=== PATIENT | female | born 1960 | race Caucasian/White ===

== ENCOUNTER 2019-04-13 02:36 | Emergency (ER) | payer BC ==
[~2019-04-13] VITALS: Ht 165.1 cm; Wt 111.1 kg
[2019-04-13] MEDS ORDERED: ALBUTEROL SULF 2.5 MG/0.5ML(0.5%) NEB SOLN NEB STA (02:48)
[2019-04-13] MEDS ORDERED: IPRATROPIUM BROM 0.5 MG/2.5ML INH SOL NEB ONE ×2 (03:00→04:15)
[2019-04-13 03:05] LABS: Basophils # (auto) 0.2 uL; Basophils % (auto) 2.5 % (0.0-2.0); Eosinophils # (auto) 0.7 uL; Eosinophils % (auto) 7.8 % (0.0-7.0); Hematocrit 41.6 % (36.0-46.0); Hemoglobin 14.1 g/dL (12.2-16.2); Lymphocytes # (auto) 1.9 uL; Lymphocytes % (auto) 20.7 % (10.0-50.0); Mean Corpuscular Hemoglobin 30.4 pg (28.0-32.0); Mean Corpuscular Volume 89.6 fL (80.0-100.0); Monocytes # (auto) 0.6 uL; Monocytes % (auto) 6.4 % (0.0-12.0); Neutrophils # (auto) 5.9 uL; Neutrophils % (auto) 62.6 % (37.0-80.0); Nucleated Red Blood Cells % 0.1 %; Platelet Count (auto) 285 10^3/uL (140-450); Red Blood Cells 4.64 10^6/uL (4.0-5.20); Red Cell Distribution Width 13.6 % (11.8-14.3); White Blood Cell 9.4 10^3/uL (4.4-10.8)
[2019-04-13 03:19] LABS: Alanine Aminotransferase 24 U/L (13-56); Albumin 3.4 g/dL (3.4-5.0); Anion Gap 8 (5-15); Aspartate Aminotransferase 14 U/L (15-37); BUN/Creatinine Ratio 10.8; Blood Urea Nitrogen 8 mg/dL (7-18); Calcium 8.5 mg/dL (8.5-10.1); Carbon Dioxide 27 mmol/L (21-32); Chloride 107 mmol/L (98-107); GFR African American 104 mL/min; GFR Non-African American 86 mL/min; Glucose 99 mg/dL (74-106); Potassium 3.8 mmol/L (3.5-5.1); Sodium 142 mmol/L (136-145)
[2019-04-13 03:21] LABS: Alkaline Phosphatase 77 U/L (45-117); Bilirubin, Total 0.3 mg/dL (0.2-1.0); Total Protein 7.5 g/dL (6.4-8.2)
[2019-04-13] MEDS ORDERED: ALBUTEROL SULF 2.5 MG/0.5ML(0.5%) NEB SOLN NEB ONE (04:15)
[2019-04-13] MEDS ORDERED: methylPREDNISolone SOD SUCC 125 MG/2 ML VL IV ONE (04:15)
[2019-04-13] MEDS ORDERED: IPRATROPIUM BROM 0.5 MG/2.5ML INH SOL ONE (04:21)
[2019-04-13] MEDS ORDERED: ALBUTEROL SULF 2.5 MG/0.5ML(0.5%) NEB SOLN ONE (04:21)
[2019-04-13 06:09] VITALS: BP 119/73
== END 2019-04-13 06:50 | disposition home or self-care (01) ==
LOC: ER 02:44
DX: J45.901 Unspecified asthma with (acute) exacerbation (principal); J01.00 Acute maxillary sinusitis, unspecified; Z90.49 Acquired absence of other specified parts of digestive tract; Z98.51 Tubal ligation status
CPT/HCPCS: 36415; 71045; 80053; 85025; 93005; 94640; 94644; 96374; 99285; J2930; J7611; J7644

== ENCOUNTER 2020-09-30 10:15 | Inpatient (IN) | payer BC, OTHER ==
[~2020-09-30] VITALS: Ht 160 cm; Wt 110.6 kg
[~2020-09-30 10:15] MED LIST: ALB5IS NEB; IPR002IS NEB; LEVO500T21 PO; PRED-559 PO
[2020-09-30] MEDS ORDERED: cefTRIAXone SOD 1,000 MG VL IM ONE (11:00)
[2020-09-30] MEDS ORDERED: methylPREDNISolone SOD SUCC 125 MG/2 ML VL IM ONE (11:00)
[2020-09-30] MEDS ORDERED: LIDOCAINE 1% HCL (LOCAL ANESTH.) INJ 20ML MDV ONE (11:06)
[2020-09-30] MEDS ORDERED: ACETAMINOPHEN 500 MG TAB PO ONE ×2 (12:00→13:01)
[2020-09-30] MEDS ORDERED: AZITHROMYCIN 500MG/ 250ML 250 ML IV ONE ×2 (12:15→14:20)
[2020-09-30] MEDS ORDERED: SODIUM CHLORIDE 0.9% 1,000 ML IV ONE (12:30)
[2020-09-30 13:22] LABS: Basophils # (auto) 0 10 ^3/uL (0-0.2); Basophils % (auto) 0.2 % (0.0-2.0); Eosinophils # (auto) 0 10 ^3/uL (0-0.8); Hematocrit 42.2 % (36.0-46.0); Hemoglobin 14.4 g/dL (12.2-16.2); Lymphocytes # (auto) 0.7 10 ^3/uL (0.4-5.4); Lymphocytes % (auto) 7.9 % (10.0-50.0); Mean Corpuscular Hemoglobin 30.2 pg (28.0-32.0); Mean Corpuscular Hgb Conc. 34.3 g/dL (32.0-36.0); Mean Corpuscular Volume 88.2 fL (80.0-100.0); Monocytes # (auto) 0.4 10 ^3/uL (0-1.3); Monocytes % (auto) 4.1 % (0.0-12.0); Neutrophils # (auto) 7.6 10 ^3/uL (1.6-8.6); Neutrophils % (auto) 87.8 % (37.0-80.0); Platelet Count (auto) 260 10^3/uL (140-450); Red Blood Cells 4.78 10^6/uL (4.0-5.20); Red Cell Distribution Width 13.4 % (11.8-14.3); White Blood Cell 8.6 10^3/uL (4.4-10.8)
[2020-09-30 13:54] LABS: Potassium 3.7 mmol/L (3.5-5.1)
[2020-09-30 14:00] LABS: Albumin 3.1 g/dL (3.4-5.0); Bilirubin, Total 0.4 mg/dL (0.2-1.0); Calcium 8.8 mg/dL (8.5-10.1); Total Protein 7.9 g/dL (6.4-8.2)
[2020-09-30] MEDS ORDERED: REMDESIVIR PER PHARMACY 0 ML IV SCH (15:15)
[2020-09-30] MEDS ORDERED: METOCLOPRAMIDE HCL 5MG/ml INJ 2ml VIAL IV PRN (15:15)
[2020-09-30] MEDS ORDERED: DOCUSATE SOD 100 MG CAP PO PRN (15:15)
[2020-09-30] MEDS ORDERED: ALUM & MAG HYDROX-SIMETH LIQ(MAALOX) 30 ML PO PRN (15:15)
[2020-09-30] MEDS ORDERED: NITROGLYCERIN 0.4 MG SL TAB SL PRN (15:15)
[2020-09-30] MEDS ORDERED: MORPHINE SULF INJ 2 MG/ML SYRINGE 1ML IV PRN ×2 (15:15)
[2020-09-30 16:09] LABS: Magnesium 2.3 mg/dL (1.6-2.6)
[2020-09-30 16:18] LABS: CRP High Sensitivity 7.69 mg/dL (< 0.3)
[2020-09-30] MEDS ORDERED: REMDESIVIR 200 MG in NS 210ml LOADING DOSE ADULT IV ONE (17:00)
[2020-09-30] MEDS: BUDESONIDE (INHALATION) 180 MCG IH IN SCH (21:58)
[2020-09-30 23:35] VITALS: BP 127/77
[2020-10-01] MEDS: ENOXAPARIN SOD 40 MG/0.4 ML SYRINGE SC SCH ×3 (00:11→21:38)
[2020-10-01] MEDS: DOXYCYCLINE 100MG/250ML 250 ML IV SCH ×3 (00:22→21:37)
[2020-10-01 03:48] VITALS: BP 132/78
[2020-10-01] MEDS: BUDESONIDE (INHALATION) 180 MCG IH IN SCH ×2 (06:24→21:37)
[2020-10-01 06:27] LABS: Basophils # (auto) 0 10 ^3/uL (0-0.2); Basophils % (auto) 0.1 % (0.0-2.0); Eosinophils # (auto) 0 10 ^3/uL (0-0.8); Hematocrit 42.6 % (36.0-46.0); Lymphocytes # (auto) 0.6 10 ^3/uL (0.4-5.4); Lymphocytes % (auto) 5.7 % (10.0-50.0); Mean Corpuscular Hemoglobin 29.5 pg (28.0-32.0); Mean Corpuscular Hgb Conc. 32.9 g/dL (32.0-36.0); Mean Corpuscular Volume 89.5 fL (80.0-100.0); Monocytes # (auto) 0.4 10 ^3/uL (0-1.3); Monocytes % (auto) 3.3 % (0.0-12.0); Neutrophils # (auto) 10.3 10 ^3/uL (1.6-8.6); Neutrophils % (auto) 90.9 % (37.0-80.0); Nucleated Red Blood Cells % 0.1 %; Platelet Count (auto) 254 10^3/uL (140-450); Red Blood Cells 4.76 10^6/uL (4.0-5.20); Red Cell Distribution Width 13.3 % (11.8-14.3); White Blood Cell 11.3 10^3/uL (4.4-10.8)
[2020-10-01 06:43] LABS: Albumin 2.8 g/dL (3.4-5.0); Calcium 9.1 mg/dL (8.5-10.1); Potassium 3.9 mmol/L (3.5-5.1)
[2020-10-01 06:46] LABS: BUN/Creatinine Ratio 15.6; Bilirubin, Total 0.3 mg/dL (0.2-1.0); Total Protein 7.5 g/dL (6.4-8.2)
[2020-10-01 08:53] LABS: Urine Bacteria FEW /hpf (None Seen); Urine Blood Negative /uL (Negative); Urine Specific Gravity 1.006 (1.001-1.035); Urine WBC 1 /hpf (0 - 5)
[2020-10-01 09:00] VITALS: BP 104/66
[2020-10-01] MEDS: DexAMETHasone SOD PHOS 10MG/1ML VIAL INJ IV SCH (09:30)
[2020-10-01] MEDS: ZINC SULFATE 220mg CAP or TAB PO SCH (09:31)
[2020-10-01] MEDS: ASCORBIC ACID 1,000 MG TAB PO SCH (09:32)
[2020-10-01] MEDS: CHOLECALCIFEROL (VITD3) 2,000 UNIT CAP PO SCH (09:32)
[2020-10-01] MEDS: ALBUTEROL SULF HFA 90MCG INH 200DOSE IN PRN ×2 (12:32→21:37)
[2020-10-01] MEDS: REMDESIVIR 100 MG in SODIUM CHL 0.9% 250 ML IV SCH (15:00)
[2020-10-01] MEDS: ACETAMINOPHEN 325 MG TAB PO PRN ×2 (16:04→23:37)
[2020-10-01 16:29] VITALS: BP 124/66
[2020-10-01 23:05] VITALS: BP 136/68
[2020-10-02 06:00] VITALS: BP 139/69
[2020-10-02] MEDS: BUDESONIDE (INHALATION) 180 MCG IH IN SCH ×2 (10:00→21:03)
[2020-10-02] MEDS: DOXYCYCLINE 100MG/250ML 250 ML IV SCH ×2 (10:04→21:52)
[2020-10-02] MEDS: ZINC SULFATE 220mg CAP or TAB PO SCH (10:04)
[2020-10-02] MEDS: DexAMETHasone SOD PHOS 10MG/1ML VIAL INJ IV SCH (10:04)
[2020-10-02] MEDS: ASCORBIC ACID 1,000 MG TAB PO SCH (10:05)
[2020-10-02] MEDS: ENOXAPARIN SOD 40 MG/0.4 ML SYRINGE SC SCH ×2 (10:05→21:52)
[2020-10-02] MEDS: CHOLECALCIFEROL (VITD3) 2,000 UNIT CAP PO SCH (10:05)
[2020-10-02 13:00] VITALS: BP 140/75
[2020-10-02 15:30] VITALS: BP 138/74
[2020-10-02] MEDS: REMDESIVIR 100 MG in SODIUM CHL 0.9% 250 ML IV SCH (15:36)
[2020-10-02 15:45] VITALS: BP 134/72
[2020-10-02 16:58] VITALS: BP 130/76
[2020-10-02] MEDS: ALBUTEROL SULF HFA 90MCG INH 200DOSE IN PRN (21:03)
[2020-10-02 23:09] VITALS: BP 109/65
[2020-10-03 05:23] VITALS: BP 115/75
[2020-10-03 08:25] VITALS: BP 127/88
[2020-10-03 09:00] VITALS: BP 127/88
[2020-10-03] MEDS: BUDESONIDE (INHALATION) 180 MCG IH IN SCH ×3 (10:00→22:20)
[2020-10-03] MEDS: DOXYCYCLINE 100MG/250ML 250 ML IV SCH ×2 (10:05→22:20)
[2020-10-03] MEDS: DexAMETHasone SOD PHOS 10MG/1ML VIAL INJ IV SCH (10:05)
[2020-10-03] MEDS: CHOLECALCIFEROL (VITD3) 2,000 UNIT CAP PO SCH (10:06)
[2020-10-03] MEDS: ZINC SULFATE 220mg CAP or TAB PO SCH (10:06)
[2020-10-03] MEDS: ASCORBIC ACID 1,000 MG TAB PO SCH (10:06)
[2020-10-03] MEDS: ENOXAPARIN SOD 40 MG/0.4 ML SYRINGE SC SCH ×2 (10:06→22:21)
[2020-10-03] MEDS ORDERED: PRED20TA2 PO (12:46)
[2020-10-03] MEDS ORDERED: DOXY-346 PO (12:46)
[2020-10-03] MEDS ORDERED: ALB5IS NEB (12:46)
[2020-10-03] MEDS ORDERED: IPR002IS NEB (12:46)
[2020-10-03] MEDS ORDERED: FAMO20TA10 PO (12:46)
[2020-10-03 15:30] VITALS: BP 127/75
[2020-10-03] MEDS: REMDESIVIR 100 MG in SODIUM CHL 0.9% 250 ML IV SCH (15:37)
[2020-10-03 22:00] VITALS: BP 135/74
[2020-10-04] MEDS: ALBUTEROL SULF HFA 90MCG INH 200DOSE IN PRN ×2 (01:28→07:39)
[2020-10-04 07:02] LABS: Hematocrit 41.4 % (36.0-46.0); Hemoglobin 14.1 g/dL (12.2-16.2); Mean Corpuscular Hemoglobin 29.7 pg (28.0-32.0); Mean Corpuscular Hgb Conc. 33.9 g/dL (32.0-36.0); Mean Corpuscular Volume 87.6 fL (80.0-100.0); Platelet Count (auto) 343 10^3/uL (140-450); Red Blood Cells 4.73 10^6/uL (4.0-5.20); Red Cell Distribution Width 13.5 % (11.8-14.3); White Blood Cell 12.8 10^3/uL (4.4-10.8)
[2020-10-04 07:38] LABS: Albumin 2.6 g/dL (3.4-5.0); Calcium 8.9 mg/dL (8.5-10.1); Potassium 3.7 mmol/L (3.5-5.1)
[2020-10-04] MEDS: BUDESONIDE (INHALATION) 180 MCG IH IN SCH (07:39)
[2020-10-04 07:43] LABS: BUN/Creatinine Ratio 22.2; Bilirubin, Total 0.3 mg/dL (0.2-1.0); Total Protein 7.1 g/dL (6.4-8.2)
[2020-10-04 07:52] LABS: Basophils % (manual) 0 (0.0-2.0); Blast Cells 0; Eosinophils % (manual) 0 (0-7); Promyelocytes % 0; Reactive Lymphocytes 0
[2020-10-04 08:39] LABS: Band Neutrophils % (manual) 3; Lymphocytes % (manual) 16 (10.0-50.0); Metamyelocytes % 2; Monocytes % (manual) 3 (0-12); Myelocytes % 2
[2020-10-04 09:00] VITALS: BP 134/71
[2020-10-04] MEDS: ENOXAPARIN SOD 40 MG/0.4 ML SYRINGE SC SCH (09:05)
[2020-10-04] MEDS: ASCORBIC ACID 1,000 MG TAB PO SCH (09:05)
[2020-10-04] MEDS: CHOLECALCIFEROL (VITD3) 2,000 UNIT CAP PO SCH (09:05)
[2020-10-04] MEDS: ZINC SULFATE 220mg CAP or TAB PO SCH (09:05)
[2020-10-04] MEDS: DexAMETHasone SOD PHOS 10MG/1ML VIAL INJ IV SCH (09:05)
[2020-10-04] MEDS: DOXYCYCLINE 100MG/250ML 250 ML IV SCH (09:05)
[2020-10-04 11:02] VITALS: BP 115/70
[2020-10-04 13:00] VITALS: BP 146/84
[2020-10-04] MEDS: REMDESIVIR 100 MG in SODIUM CHL 0.9% 250 ML IV SCH (13:46)
== END 2020-10-04 15:36 | disposition home health service (06) | DRG 177 ==
LOC: ER 10:15 → TELE 15:07 → TELE-WESTW 23:30
PROVIDERS: ADMIT Hospitalist; ATTEND Hospitalist
DX: U07.1 COVID-19 (principal); J12.89 Other viral pneumonia; J96.01 Acute respiratory failure with hypoxia; J45.901 Unspecified asthma with (acute) exacerbation; Z68.41 Body mass index [BMI] 40.0-44.9, adult; E66.01 Morbid (severe) obesity due to excess calories; F41.9 Anxiety disorder, unspecified; Z82.49 Family history of ischemic heart disease and other diseases of the circulatory system; Z82.5 Family history of asthma and other chronic lower respiratory diseases; Z83.3 Family history of diabetes mellitus
CPT/HCPCS: 36415; 71045; 80053; 81001; 82728; 83605; 83615; 83735; 84443; 85007; 85025; 85027; 85379; 86141; 87040; 87426; 87804; 94640; 96361; 96365; 96367; 96372; G0378; J0696; J1100; J2001; J3490

== ENCOUNTER 2021-12-26 06:09 | Inpatient (IN) | payer OTHER ==
[~2021-12-26] VITALS: Ht 162.6 cm; Wt 117.8 kg
[~2021-12-26 06:09] MED LIST changes: +DOXY-346 PO; +FAMO20TA10 PO; -LEVO500T21 PO; -PRED-559 PO; +PRED20TA2 PO
[2021-12-26 07:20] LABS: Basophils # (auto) 0.1 10 ^3/uL (0-0.2); Basophils % (auto) 0.8 % (0.0-2.0); Eosinophils # (auto) 0.1 10 ^3/uL (0-0.8); Eosinophils % (auto) 1.9 % (0.0-7.0); Lymphocytes # (auto) 0.9 10 ^3/uL (0.4-5.4); Lymphocytes % (auto) 14.4 % (10.0-50.0); Mean Corpuscular Hemoglobin 29.6 pg (28.0-32.0); Mean Corpuscular Hgb Conc. 33.4 g/dL (32.0-36.0); Mean Corpuscular Volume 88.8 fL (80.0-100.0); Monocytes # (auto) 0.6 10 ^3/uL (0-1.3); Monocytes % (auto) 9.7 % (0.0-12.0); Neutrophils # (auto) 4.7 10 ^3/uL (1.6-8.6); Neutrophils % (auto) 73.2 % (37.0-80.0); Nucleated Red Blood Cells % 0.1 %; Red Blood Cells 4.73 10^6/uL (4.0-5.20); Red Cell Distribution Width 13.2 % (11.8-14.3); White Blood Cell 6.4 10^3/uL (4.4-10.8)
[2021-12-26 07:40] LABS: Albumin 3.3 g/dL (3.4-5.0); BUN/Creatinine Ratio 10.7; Potassium 3.8 mmol/L (3.5-5.1)
[2021-12-26 07:45] LABS: Bilirubin, Total 0.3 mg/dL (0.2-1.0); Total Protein 7.4 g/dL (6.4-8.2)
[2021-12-26] MEDS ORDERED: methylPREDNISolone SOD SUCC 125 MG/2 ML VL IV ONE (08:30)
[2021-12-26] MEDS ORDERED: ALBUTEROL SULF 2.5 MG/0.5ML(0.5%) NEB SOLN NEB ONE ×3 (08:30→17:30)
[2021-12-26] MEDS ORDERED: IPRATROPIUM BROM 0.5 MG/2.5ML INH SOL NEB ONE ×3 (08:30→17:30)
[2021-12-26] MEDS ORDERED: AZITHROMYCIN 500MG/ 250ML 250 ML IV ONE (08:30)
[2021-12-26] MEDS ORDERED: HYDROcodone-ACET 5/325MG TAB PO PRN (17:30)
[2021-12-26] MEDS ORDERED: hydrALAZINE HCL 20 MG/ML VL IV PRN (17:30)
[2021-12-26] MEDS ORDERED: BUDESONIDE (INHALATION) 0.5 MG/2 ML NEB NEB ONE (17:30)
[2021-12-26] MEDS ORDERED: HYDROcodone-ACET 5/325MG TAB PO ONE (17:30)
[2021-12-26] MEDS ORDERED: LACTULOSE 20Gm/30ML SOLN PO PRN (17:30)
[2021-12-26] MEDS ORDERED: ONDANSETRON HCL 4 MG/2 ML VIAL IV PRN (17:30)
[2021-12-26] MEDS ORDERED: DOCUSATE SOD 100 MG CAP PO PRN (17:30)
[2021-12-26] MEDS ORDERED: LORazepam 0.5 MG TAB PO PRN (17:30)
[2021-12-26] MEDS ORDERED: NITROGLYCERIN 0.4 MG SL TAB SL PRN (17:30)
[2021-12-26] MEDS ORDERED: PANTOPRAZOLE 40 MG/10 ML VIAL INJ IV ONE (17:30)
[2021-12-26] MEDS ORDERED: SUCRALFATE 1 GM/10 ML ORAL SUSP PO ONE (17:30)
[2021-12-26] MEDS ORDERED: ACETAMINOPHEN 325 MG TAB PO PRN (17:30)
[2021-12-26] MEDS ORDERED: MORPHINE SULFATE INJECTION 2 MG/ML SYRG IV PRN ×2 (17:30)
[2021-12-26] MEDS ORDERED: MONTELUKAST SODIUM 10 MG TAB PO ONE (17:30)
[2021-12-26] MEDS: IPRATROPIUM BROM 0.5 MG/2.5ML INH SOL NEB SCH ×2 (18:05→21:57)
[2021-12-26] MEDS: ALBUTEROL SULF 2.5 MG/0.5ML(0.5%) NEB SOLN NEB PRN ×2 (18:05→21:57)
[2021-12-26 18:49] VITALS: BP 112/56
[2021-12-26 20:10] VITALS: BP 101/58
[2021-12-26] MEDS: SUCRALFATE 1 GM/10 ML ORAL SUSP PO SCH (21:16)
[2021-12-26] MEDS: methylPREDNISolone SOD SUCC 40 MG/ML VL IV SCH (21:16)
[2021-12-26] MEDS: ATORVASTATIN 20 MG TAB PO SCH (21:17)
[2021-12-26] MEDS: BUDESONIDE (INHALATION) 0.5 MG/2 ML NEB NEB SCH (21:57)
[2021-12-27] MEDS: ALBUTEROL SULF 2.5 MG/0.5ML(0.5%) NEB SOLN NEB PRN ×6 (02:06→22:36)
[2021-12-27] MEDS: IPRATROPIUM BROM 0.5 MG/2.5ML INH SOL NEB SCH ×6 (02:06→22:36)
[2021-12-27 02:36] LABS: Magnesium 2.3 mg/dL (1.6-2.6); Phosphorus 2.5 mg/dL (2.5-4.90)
[2021-12-27 03:49] LABS: Alcohol, Urine < 3.0 mg/dL (0-10); Amphetamine Screen, Urine NEGATIVE (NEGATIVE); Barbiturate Scree,Urine NEGATIVE (NEGATIVE); Benzodiazephine Screen, Urine NEGATIVE (NEGATIVE); Cannabinoid Screen, Urine NEGATIVE (NEGATIVE); Cocaine Screen, Urine NEGATIVE (NEGATIVE); Opiate Scree,Urine POSITIVE (NEGATIVE); Phencyclidine Screen, Urine NEGATIVE (NEGATIVE)
[2021-12-27 05:00] VITALS: BP 109/55
[2021-12-27] MEDS: methylPREDNISolone SOD SUCC 40 MG/ML VL IV SCH ×3 (05:33→21:20)
[2021-12-27 05:41] LABS: Basophils # (auto) 0 10 ^3/uL (0-0.2); Basophils % (auto) 0.2 % (0.0-2.0); Eosinophils # (auto) 0 10 ^3/uL (0-0.8); Hematocrit 40.1 % (36.0-46.0); Hemoglobin 13.4 g/dL (12.2-16.2); Lymphocytes # (auto) 0.5 10 ^3/uL (0.4-5.4); Lymphocytes % (auto) 4.5 % (10.0-50.0); Mean Corpuscular Hemoglobin 29.7 pg (28.0-32.0); Mean Corpuscular Hgb Conc. 33.5 g/dL (32.0-36.0); Mean Corpuscular Volume 88.6 fL (80.0-100.0); Monocytes # (auto) 0.2 10 ^3/uL (0-1.3); Monocytes % (auto) 2.1 % (0.0-12.0); Neutrophils # (auto) 10.6 10 ^3/uL (1.6-8.6); Neutrophils % (auto) 93.2 % (37.0-80.0); Red Blood Cells 4.52 10^6/uL (4.0-5.20); Red Cell Distribution Width 13.2 % (11.8-14.3); White Blood Cell 11.3 10^3/uL (4.4-10.8)
[2021-12-27] MEDS ORDERED: FAMO20TA10 PO (05:53)
[2021-12-27 06:08] LABS: Albumin 3.1 g/dL (3.4-5.0); Calcium 8.9 mg/dL (8.5-10.1); Magnesium 2.5 mg/dL (1.6-2.6); Potassium 4.2 mmol/L (3.5-5.1)
[2021-12-27 06:12] LABS: BUN/Creatinine Ratio 17.9; Bilirubin, Total 0.2 mg/dL (0.2-1.0); CRP High Sensitivity 0.88 mg/dL (< 0.3); Phosphorus 2.8 mg/dL (2.5-4.90); Total Protein 7.2 g/dL (6.4-8.2); Uric Acid 4.4 mg/dL (2.6-6.0)
[2021-12-27 06:20] LABS: INR 1.04 (0.9-1.15); Partial Thromboplastin Time 26.9 sec (23.6-33.0)
[2021-12-27] MEDS: BUDESONIDE (INHALATION) 0.5 MG/2 ML NEB NEB SCH ×2 (06:20→19:15)
[2021-12-27] MEDS: SUCRALFATE 1 GM/10 ML ORAL SUSP PO SCH ×2 (06:20→11:52)
[2021-12-27 08:00] VITALS: BP 121/60
[2021-12-27] MEDS ORDERED: PANTOPRAZOLE 40 MG/10 ML VIAL INJ IV SCH (10:00)
[2021-12-27] MEDS: ASPirin 81 mg TAB PO SCH (10:04)
[2021-12-27] MEDS: ENOXAPARIN SOD 40 MG/0.4 ML SYRINGE SC SCH (10:05)
[2021-12-27] MEDS: CHOLECALCIFEROL (VITD3) 2,000 UNIT CAP/TAB PO SCH (10:05)
[2021-12-27] MEDS: CYANOCOBALAMIN 500 MCG TAB PO SCH (10:43)
[2021-12-27 12:00] VITALS: BP 103/59
[2021-12-27 16:00] VITALS: BP 102/60
[2021-12-27] MEDS: ATORVASTATIN 20 MG TAB PO SCH (21:20)
[2021-12-27 22:00] VITALS: BP 101/55
[2021-12-27] MEDS ORDERED: MONTELUKAST SODIUM 10 MG TAB PO SCH (22:00)
[2021-12-28] MEDS: ALBUTEROL SULF 2.5 MG/0.5ML(0.5%) NEB SOLN NEB PRN (02:18)
[2021-12-28] MEDS: IPRATROPIUM BROM 0.5 MG/2.5ML INH SOL NEB SCH ×4 (02:18→13:58)
[2021-12-28 05:00] VITALS: BP 104/62
[2021-12-28] MEDS: methylPREDNISolone SOD SUCC 40 MG/ML VL IV SCH ×2 (05:09→13:58)
[2021-12-28] MEDS: BUDESONIDE (INHALATION) 0.5 MG/2 ML NEB NEB SCH (06:50)
[2021-12-28] MEDS ORDERED: PRED20TA2 PO (07:13)
[2021-12-28] MEDS ORDERED: AZIT500T66 PO (07:13)
[2021-12-28] MEDS ORDERED: FAMO20TA10 PO (07:13)
[2021-12-28] MEDS ORDERED: IPRA0.00 IN (07:13)
[2021-12-28] MEDS ORDERED: MONT10TA23 PO (07:33)
[2021-12-28 08:00] VITALS: BP 105/70
[2021-12-28 09:46] VITALS: BP 105/70
[2021-12-28] MEDS ORDERED: PANTOPRAZOLE 40 MG TAB PO SCH (10:00)
[2021-12-28] MEDS: ASPirin 81 mg TAB PO SCH (11:43)
[2021-12-28] MEDS: CHOLECALCIFEROL (VITD3) 2,000 UNIT CAP/TAB PO SCH (11:43)
[2021-12-28] MEDS: ENOXAPARIN SOD 40 MG/0.4 ML SYRINGE SC SCH (11:43)
[2021-12-28] MEDS: CYANOCOBALAMIN 500 MCG TAB PO SCH (11:43)
[2021-12-28 12:17] VITALS: BP 113/64
== END 2021-12-28 14:51 | disposition home or self-care (01) | DRG 202 ==
LOC: ER 06:09 → OVERFLOW 17:27 → TELE-CENTR 20:07 → CENTRAL 20:08
PROVIDERS: ADMIT Hospitalist; ATTEND Hospitalist
DX: J45.42 Moderate persistent asthma with status asthmaticus (principal); E44.1 Mild protein-calorie malnutrition; E66.2 Morbid (severe) obesity with alveolar hypoventilation; Z68.41 Body mass index [BMI] 40.0-44.9, adult; R09.02 Hypoxemia; K29.70 Gastritis, unspecified, without bleeding; K21.9 Gastro-esophageal reflux disease without esophagitis; J20.9 Acute bronchitis, unspecified; E78.5 Hyperlipidemia, unspecified; Z20.822 Contact with and (suspected) exposure to COVID-19; I25.10 Atherosclerotic heart disease of native coronary artery without angina pectoris; Z90.49 Acquired absence of other specified parts of digestive tract; Z98.51 Tubal ligation status
CPT/HCPCS: 36415; 36600; 71045; 80053; 80061; 80307; 82728; 82805; 83036; 83735; 83880; 83970; 84100; 84443; 84484; 84550; 85025; 85379; 85610; 85652; 85730; 86141; 87040; 87070; 87077; 87086; 87186; 87205; 93005; 94640; 96365; 96366; 96375; C9113; G0378

== ENCOUNTER 2024-06-07 10:30 | Emergency (ER) | payer OTHER ==
[~2024-06-07] VITALS: Ht 160 cm; Wt 111.7 kg
[~2024-06-07 10:30] MED LIST changes: +AZIT500T66 PO; -DOXY-346 PO; -IPR002IS NEB; +IPRA0.00 IN; +MONT10TA23 PO
[2024-06-07 12:09] VITALS: BP 152/89; PULSE 85; RESP 16; TEMP 98.1; O2SAT 95
[2024-06-07] MEDS: KETOROLAC TROMETH 30 MG/ML 1ML VIAL IM ONE (14:00)
[2024-06-07] MEDS ORDERED: MELO7.5T7 PO (14:26)
[2024-06-07] MEDS ORDERED: CYCL-837 PO (14:26)
== END 2024-06-07 14:41 | disposition home or self-care (01) ==
LOC: ER 10:35
DX: M54.16 Radiculopathy, lumbar region (principal); J45.909 Unspecified asthma, uncomplicated; Z90.49 Acquired absence of other specified parts of digestive tract; Z90.89 Acquired absence of other organs; Z79.52 Long term (current) use of systemic steroids
CPT/HCPCS: 72170; 96372; 99283; J1885

== ENCOUNTER 2024-08-19 12:01 | Inpatient (IN) | payer OTHER ==
[~2024-08-19] VITALS: Ht 160 cm; Wt 126.0 kg
[~2024-08-19 12:01] MED LIST changes: +CYCL-837 PO; +MELO7.5T7 PO
--- NOTE | 2024-08-19 13:14 | ED.PDOC ---
SOB-HPI HPI Comments 63y F who presents to the ED for chief complaint of flu-like symptoms. Pt states she has been having flu-like symptoms with congestion and runny nose, fever and headache for the past 4 days. Pt states she took COVID at home test and tested positive yesterday. Pt states she has previously hospitalized for COVID in 2020 and is currently vaccinated against it. Pt has noted history of asthma and states she recently ran out of her inhaler. Pt denies any other symptoms at this time. Pt has noted temp of 99.6F, hear rate of 109 and BP of 147/88. Pt otherwise denies any other symptoms at this time. Chief Complaint: Flu like Time Seen by MD: 13:11 Primary Care Provider: Sreedhar Rock notes: Medications, Allergies Information Source: Patient, Spouse Mode of Arrival: Ambulatory Brought in by: spouse Past Medical History PAST MEDICAL HISTORY: Asthma Surgical History: BTL, Cholecystectomy, CONCRETE SMOOTHER History: No Pertinent CONCRETE SMOOTHER History Family History Family History: Reviewed,noncontributory to illness Social History Smoker: Non-Smoker Alcohol: Denies ETOH Use Drugs: Denies Drug Use Lives In: Home Constitutional: reports: fatigue, fever, malaise, weakness; denies: chills, diaphoresis, sweats, others EENTM: denies: blurred vision, double vision, ear bleeding, ear discharge, ear drainage, ear pain, ear ringing, eye pain, eye redness, hearing loss, mouth pain, mouth swelling, nasal discharge, nose bleeding, nose congestion, nose pain, photophobia, tearing, throat pain, throat swelling, voice changes, others Respiratory: reports: cough; denies: hemoptysis, orthopnea, SOB at rest, shortness of breath, SOB with excertion, stridor, wheezing, others Cardiovascular: denies: chest pain, dizzy spells, diaphoresis, Dyspnea on exertion, edema, irregular heart beat, left arm pain, lightheadedness, palpitations, PND, syncope, others Gastrointestinal: denies: abdomen distended, abdominal pain, blood streaked bowels, constipated, diarrhea, dysphagia, difficulty swallowing, hematemesis, melena, nausea, poor appetite, poor fluid intake, rectal bleeding, rectal pain, vomiting, others Genitourinary: denies: abnormal vagina bleeding, burning, dyspareunia, dysuria, flank pain, frequency, hematuria, incontinence, pain, , vagina discharge, urgency, others Neurological: denies: dizziness, fainting, headache, left sided numbness, left sided weakness, numbness, paresthesia, pre-existing deficit, right sided numbness, right sided weakness, seizure, speech problems, tingling, tremors, weakness, others Musculoskeletal: denies: back pain, gout, joint pain, joint swelling, muscle pain, muscle stiffness, neck pain, others Integumetry: denies: bruises, change in color, change in hair/nails, dryness, laceration, lesions, lumps, rash, wounds, others Allergic/Immunocompromised: denies: Difficulty Healing, Frequent Infections, H die[place], Itching, others Hematologic/Lymphatic: denies: anemia, blood clots, easy bleeding, easy bruising, swollen glands, others Endocrine: denies: excessive hunger, excessive sweating, excessive thirst, excessive urination, flushing, intolerance to cold, intolerance to heat, unexplained weight gain, unexplained weight loss, others Psychiatric: denies: anxiety, bipolar disorder, depression, hopeless, panic disorder, schizophrenia, sleepless, suicidal, others All Other Systems: Reviewed and Negative Physical Exam General Appearance: Moderate Distress HEENT: Normal ENT Inspection, Pharynx Normal, TMs Normal Neck: Full Range of Motion, Non-Tender, Normal, Normal Inspection Respiratory: Other (Coarse breath sounds) Cardiovascular: No Edema, No JVD, No Murmur, No Gallop, Normal Peripheral Pulses, Regular Rate/Rhythm Breast Exam: Deferred Gastrointestinal: No Organomegaly, Non Tender, No Pulsatile Mass, Normal Bowel Sounds, Soft Genitalia: Deferred Pelvic: Deferred Rectal: Deferred Extremities: No calf tenderness, Normal capillary refill, Normal inspection, Normal range of motion, Non-tender, No pedal edema Musculoskeletal : Apperance: Normal Neurologic: Alert, 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 Was a procedure done?: No Differential Dx Differential Diagnosis: Anxiety, Asthma, Bronchitis, CHF, COPD, Pneumonia, Pulmonary Embolism, Respiratory Distress, URI Comments COVID, Influeza A and B, RSV X-Ray, Labs, Meds, VS Vital Signs Date Time Temp Pulse Resp B/P (MAP) Pulse Ox O2 Delivery O2 Flow Rate FiO2 08/19/24 14:16 101 18 143/79 (100) 94 08/19/24 12:34 99.6 109 24 147/88 (107) 97 Lab Test 08/19/24 15:45 08/19/24 13:10 Range/Units Influenza Type A Antigen Negative Negative Influenza Type B Antigen Negative Negative SARS-CoV-2 Antigen (Rapid) Positive NEGATIVE White Blood Count 8.3 4.4-10.8 10^3/uL Red Blood Count 4.68 4.0-5.20 10^6/uL Hemoglobin 14.4 12.2-16.2 g/dL Hematocrit 42.7 36.0-46.0 % Mean Corpuscular Volume 91.1 80.0-100.0 fL Mean Corpuscular Hemoglobin 30.7 28.0-32.0 pg Mean Corpuscular Hemoglobin Concent 33.7 32.0-36.0 g/dL Red Cell Distribution Width 13.4 11.8-14.3 % Platelet Count 257 140-450 10^3/uL Mean Platelet Volume 6.9 6.9-10.8 fL Neutrophils (%) (Auto) 78.0 37.0-80.0 % Lymphocytes (%) (Auto) 11.5 10.0-50.0 % Monocytes (%) (Auto) 7.5 0.0-12.0 % Eosinophils (%) (Auto) 2.3 0.0-7.0 % Basophils (%) (Auto) 0.7 0.0-2.0 % Neutrophils # (Auto) 6.5 1.6-8.6 10 ^3/uL Lymphocytes # (Auto) 1.0 0.4-5.4 10 ^3/uL Monocytes # (Auto) 0.6 0-1.3 10 ^3/uL Eosinophils # (Auto) 0.2 0-0.8 10 ^3/uL Basophils # (Auto) 0.1 0-0.2 10 ^3/uL Nucleated Red Blood Cells 0.2 % Sodium Level 137 136-145 mmol/L Potassium Level 4.1 3.5-5.1 mmol/L Chloride Level 103 98-107 mmol/L Carbon Dioxide Level 29 20-31 mmol/L Anion Gap 5 5-15 Blood Urea Nitrogen 8 L 9-23 mg/dL Creatinine 0.88 0.550-1.02 mg/dL Glomerular Filtration Rate Calc 75 >90 mL/min BUN/Creatinine Ratio 9.1 L 10.0-20.0 Serum Glucose 178 H 74-106 mg/dL Calcium Level 9.5 8.7-10.4 mg/dL PROCEDURE(s): CXRP - CHEST PORTABLE Findings/Impression: Frontal chest radiograph demonstrates no acute osseous or superficial soft tissue abnormalities. The trachea is midline. The cardiac silhouette and mediastinum are within normal limits. No pneumothorax, pleural effusions, or consolidations. Patient alert pain Complaining of shortness a breath. Has tested for COVID at home. Blood sugar elevated. Vitals stable. WBC within normal limits. Hemoglobin within normal limits. Has had vaccine for COVID. Reviewed her history. Explained to the patient. Continue cardiac monitoring. Spoke with choice physician. Her saturation was low. Was placed on oxygen. Fever was increasing. Tachycardia. Clinically she has a pneumonia. Family insists on staying. They are scared to go home. Spoke with choice physician. The night provider for choice we will be following the patient. Time of 1ST Reevaluation: 13:40 Reevaluation 1ST: Unchanged Time of 2ND Reevaluation: 17:32 Reevaluation 2ND: Unchanged Patient Education/Counseling: Diagnosis, Treatment Family Education/Counseling: Diagnosis, Treatment Departure 1 Departure Time of Disposition: 15:24 Impression: Primary Impression: Pneumonia due to 2019 novel coronavirus Disposition: ADMITTED INPATIENT Admit to: Med Surg Condition: Guarded e-Prescriptions Prednisone (Prednisone) 20 Mg Tab 20 MG PO DAILY for 5 Days, #5 MG Prov: JEREMY ORONA MD 08/19/24 Critical Care Note Critical Care Time?: Yes (45 min-critical care time only) Stability Stability form required: No Heart Score Heart Score: Heart Score Response (Comments) Value History N/A 0 EKG N/A 0 Age N/A 0 Risk Factors N/A 0 Troponin N/A 0 Total 0 I personally scribed for JEREMY ORONA MD ([email or web address]) on 08/19/24 at 13:13. Electronically submitted by Angie Alvarez ([email or web address]). I personally scribed for JEREMY ORONA MD ([email or web address]) on 08/19/24 at 13:36. Electronically submitted by Angie Alvarez ([facility] JEREMY ORONA MD Aug 19, 2024 13:13
--- NOTE | 2024-08-19 13:22 | DVH ---
EXAM: XY CHEST PORTABLE TECHNIQUE: Single frontal chest radiograph CLINICAL HISTORY: sob COMPARISON: CHEST PORTABLE on DOS: 12/26/21, CHEST PORTABLE on DOS: 10/04/20, CHEST PORTABLE on DOS: 1 12/02/19 Findings/Impression: Frontal chest radiograph demonstrates no acute osseous or superficial soft tissue abnormalities. The trachea is midline. The cardiac silhouette and mediastinum are within normal limits. No pneumothorax, pleural effusions, or consolidations.
[2024-08-19 13:45] LABS: Basophils # (auto) 0.1 10 ^3/uL (0-0.2); Basophils % (auto) 0.7 % (0.0-2.0); Eosinophils # (auto) 0.2 10 ^3/uL (0-0.8); Eosinophils % (auto) 2.3 % (0.0-7.0); Hematocrit 42.7 % (36.0-46.0); Hemoglobin 14.4 g/dL (12.2-16.2); Lymphocytes % (auto) 11.5 % (10.0-50.0); Mean Corpuscular Hemoglobin 30.7 pg (28.0-32.0); Mean Corpuscular Hgb Conc. 33.7 g/dL (32.0-36.0); Mean Corpuscular Volume 91.1 fL (80.0-100.0); Monocytes # (auto) 0.6 10 ^3/uL (0-1.3); Monocytes % (auto) 7.5 % (0.0-12.0); Neutrophils # (auto) 6.5 10 ^3/uL (1.6-8.6); Nucleated Red Blood Cells % 0.2 %; Platelet Count (auto) 257 10^3/uL (140-450); Red Blood Cells 4.68 10^6/uL (4.0-5.20); Red Cell Distribution Width 13.4 % (11.8-14.3); White Blood Cell 8.3 10^3/uL (4.4-10.8)
[2024-08-19 13:46] LABS: Chloride 103 mmol/L (98-107); Potassium 4.1 mmol/L (3.5-5.1); Sodium 137 mmol/L (136-145)
[2024-08-19 13:47] LABS: Anion Gap 5 (5-15); Calcium 9.5 mg/dL (8.7-10.4); Carbon Dioxide 29 mmol/L (20-31)
[2024-08-19 13:52] LABS: BUN/Creatinine Ratio 9.1 (10.0-20.0); Blood Urea Nitrogen 8 mg/dL (9-23); Glucose 178 mg/dL (74-106)
[2024-08-19 16:53] LABS: Rapid Influenza A Negative (Negative); Rapid Influenza B Negative (Negative)
[2024-08-19 16:56] LABS: COVID19 ANTIGEN SOFIA FIA POSITIVE (NEGATIVE)
[2024-08-19] MEDS ORDERED: PRED20TA2 PO (17:35)
[2024-08-19] MEDS: methylPREDNISolone SOD SUCC 125 MG/2 ML VL IV ONE (17:45)
[2024-08-19] MEDS ORDERED: MORPHINE SULFATE INJ 2 MG/ml SYRG IV PRN (17:45)
[2024-08-19] MEDS ORDERED: ACETAMINOPHEN 325 MG TAB PO PRN (17:45)
[2024-08-19] MEDS ORDERED: NITROGLYCERIN 0.4 MG SL TAB SL PRN (17:45)
[2024-08-19 19:00] VITALS: PULSE 80; RESP 20; O2SAT 96
[2024-08-19 20:25] VITALS: PULSE 82; RESP 14; O2SAT 99
[2024-08-19 21:28] LABS: Urine Bacteria FEW /hpf (None Seen); Urine Blood TRACE /uL (Negative); Urine Clarity Clear (Clear); Urine Color Yellow (Yellow); Urine Mucus FEW (None Seen); Urine Protein, UAD Negative (Negative); Urine Specific Gravity 1.025 (1.001-1.035); Urine Urobilinogen Normal (Negative); Urine WBC 1 /hpf (0 - 5); Urine pH 5.5 (5.0-9.0)
[2024-08-19] MEDS: ASCORBIC ACID 500 MG TAB PO SCH (22:22)
[2024-08-19 22:58] VITALS: BP 102/59; PULSE 89; RESP 14; RESP 19; TEMP 98.6; O2SAT 98; O2SAT 99
[2024-08-19 22:59] VITALS: BP 121/64; PULSE 80; RESP 14; TEMP 98; O2SAT 98
[2024-08-19 23:43] VITALS: BP 102/59; PULSE 81; RESP 18; TEMP 98; O2SAT 99
[2024-08-20] VITALS (10 sets, daily range): BP systolic 104–124; BP diastolic 54–66; PULSE 66–87; RESP 16–19; TEMP 97.9–98.7; O2SAT 93–99
--- NOTE | 2024-08-20 04:26 | DVHHP2 ---
FITZ KAMARA RESTAURANT LEAD 08/20/24 0426: History of Present Illness Reason for Visit: Shortness of breath History of Present Illness 63 year-old female with path medical history of asthma presents with complaints of upper respiratory symptoms Times four days. Patient endorsed sick contact by family Positive for Covid. Patient states she recently tested Positive for COVID-19. On arrival to the emergency department patient presented hemodynamically stable with a Documented oxygen saturation of 97% on room air. Further evaluation while the patient was in the emergency department demonstrated that the patient Was requiring supplemental oxygen And placed on 6 L oxy mask. Patient was seen and evaluated by myself and ER bed one, at such time her oxygen saturation was 94% on 6 L oxy mask. Patient denies dizziness, chest pain, nausea, vomiting, diarrhea, Pulmonary: Asthma Smoke: No ALCOHOL: none Drugs: None Lives: with Family Review of Systems Constitutional: Yes: Fever, Malaise; No: Chills, Sweats, Weakness, Other Eyes: No: Pain, Vision change, Conjunctivae inflammation, Eyelid inflammation, Other, Redness Respiratory: Cough, Shortness of breath; No: Dry, SOB with excertion, Wheezing, Hemoptysis, Pleuritic Pain, Sputum, Wheezing, Other Cardiovascular: No: Chest Pain, Palpitations, Orthopnea, Paroxysmal Noc. Dyspnea, Edema, Lt Headedness, Other Gastrointestinal: No: Nausea, Vomiting, Abdominal Pain, Diarrhea, Constipation, Melena, Hematochezia, Other Genitourinary: No Dysuria, No Frequency, No Incontinence, No Hematuria, No Rete ntion, No Other Musculoskeletal: No: other, neck pain, shoulder pain, arm pain, back pain, hand pain, leg pain, foot pain Skin: No: Rash, Lesions, Jaundice, Bruising, Other Neurological: No: Weakness, Numbness, Incoordination, Change in speech, Confusion, Seizures, Other Allergies: Coded Allergies: NO KNOWN ALLERGIES (Unverified , 03/13/14) Medications Current Medications Medications Dose Ordered Sig/Gerry Route Start Time Stop Time Status Last Admin Dose Admin Acetaminophen 325 mg Q4HP PRN PO 08/19/24 17:45 Enoxaparin Sodium 40 mg DAILY SC 08/20/24 10:00 Zinc Sulfate 220 mg DAILY PO 08/20/24 10:00 Ascorbic Acid 500 mg BID PO 08/19/24 22:00 08/19/24 22:22 500 MG Nitroglycerin 0.4 mg Q5MINP PRN SL 08/19/24 17:45 Morphine Sulfate 2 mg Q30M PRN IV 08/19/24 17:45 Dexamethasone Sodium Phosphate 6 mg DAILY IV 08/20/24 10:00 Albuterol 180 mcg TID IN 08/20/24 06:00 Pantoprazole Sodium 40 mg DAILY IV 08/20/24 10:00 Exam Vital Signs Vital Signs Date Time Temp Pulse Resp B/P (MAP) Pulse Ox O2 Delivery O2 Flow Rate FiO2 08/19/24 23:43 81 18 99 Simple Mask* 9 90 08/19/24 23:43 98.0 102/59 (73) 98.0 General Appearance: Alert, Oriented X3, Cooperative, moderate distress HEENT: Atraumatic, PERRLA Respiratory: Clear to auscultation, Normal air movement Cardiovascular: Regular rate, Normal S1, Normal S2 Abdominal: Normal bowel sounds, Soft, No tenderness Extremities: No clubbing, No cyanosis, No edema Skin: No rashes, No breakdown Neuro: Normal speech, Strength at 5/5 X4 ext, Cranial nerves 3-12 NL Psych/Mental Status: Mental status NL, Mood NL Labs/Xrays Labs Test 08/19/24 21:05 08/19/24 15:45 08/19/24 13:10 Range/Units Urine Color Yellow Yellow Urine Clarity Clear Clear Urine pH 5.5 5.0-9.0 Urine Specific [place] 1.025 1.001-1.035 Urine Protein Negative Negative Urine Ketones 1+ H Negative Urine Blood Trace H Negative /uL Urine Nitrite Negative Negative Urine Bilirubin Negative Negative Urine Urobilinogen Normal Negative mg/dL Urine Leukocyte Esterase Negative Negative /uL Urine RBC 6 0 - 4 /hpf Urine WBC 1 0 - 5 /hpf Urine Squamous Epithelial Cells Few <5 /hpf Urine Bacteria Few H None Seen /hpf Urine Mucus Few None Seen Urine Glucose Normal Normal mg/dL Influenza Type A Antigen Negative Negative Influenza Type B Antigen Negative Negative SARS-CoV-2 Antigen (Rapid) Positive NEGATIVE White Blood Count 8.3 4.4-10.8 10^3/uL Red Blood Count 4.68 4.0-5.20 10^6/uL Hemoglobin 14.4 12.2-16.2 g/dL Hematocrit 42.7 36.0-46.0 % Mean Corpuscular Volume 91.1 80.0-100.0 fL Mean Corpuscular Hemoglobin 30.7 28.0-32.0 pg Mean Corpuscular Hemoglobin Concent 33.7 32.0-36.0 g/dL Red Cell Distribution Width 13.4 11.8-14.3 % Platelet Count 257 140-450 10^3/uL Mean Platelet Volume 6.9 6.9-10.8 fL Neutrophils (%) (Auto) 78.0 37.0-80.0 % Lymphocytes (%) (Auto) 11.5 10.0-50.0 % Monocytes (%) (Auto) 7.5 0.0-12.0 % Eosinophils (%) (Auto) 2.3 0.0-7.0 % Basophils (%) (Auto) 0.7 0.0-2.0 % Neutrophils # (Auto) 6.5 1.6-8.6 10 ^3/uL Lymphocytes # (Auto) 1.0 0.4-5.4 10 ^3/uL Monocytes # (Auto) 0.6 0-1.3 10 ^3/uL Eosinophils # (Auto) 0.2 0-0.8 10 ^3/uL Basophils # (Auto) 0.1 0-0.2 10 ^3/uL Nucleated Red Blood Cells 0.2 % Sodium Level 137 136-145 mmol/L Potassium Level 4.1 3.5-5.1 mmol/L Chloride Level 103 98-107 mmol/L Carbon Dioxide Level 29 20-31 mmol/L Anion Gap 5 5-15 Blood Urea Nitrogen 8 L 9-23 mg/dL Creatinine 0.88 0.550-1.02 mg/dL Glomerular Filtration Rate Calc 75 >90 mL/min BUN/Creatinine Ratio 9.1 L 10.0-20.0 Serum Glucose 178 H 74-106 mg/dL Calcium Level 9.5 8.7-10.4 mg/dL Assessment/Plan Assessment/Plan Acute hypoxemic respiratory failure Covid 19 positive Hx Asthma Plan Admit telemetry Pulmonology consult. Bronchodilators. Supplemental O2 to maintain O2 saturation greater than 93%. IV steroids. COVID-19 protocol: Droplet precautions, oral vitamin supplementation Infectious disease consult. GI Prophylaxis Protonix / DVT prophylaxis Lovenox Plan discussed with: Patient My Orders Orders - FITZ KAMARA RESTAURANT LEAD Procedure Category Date Status Time Dexamethasone PHA 08/20/24 In Process Injection (Decadron 10:00 Complete Blood Count LAB 08/21/24 Verified 05:00 Complete Blood Count LAB 08/22/24 Verified 05:00 Complete Blood Count LAB 08/23/24 Verified 05:00 Basic Metabolic Panel LAB 08/21/24 Verified 05:00 Basic Metabolic Panel LAB 08/22/24 Verified 05:00 Basic Metabolic Panel LAB 08/23/24 Verified 05:00 Basic Metabolic Panel LAB 08/24/24 Verified 05:00 *Consult CONS 08/19/24 Transmitted / 22:13 * Infectious [place]- CONS 08/19/24 Transmitted [place] 22:13 Albuterol Inhaler PHA 08/20/24 In Process (Ventolin Hfa) 06:00 Pantoprazole PHA 08/20/24 In Process (Protonix) 10:00 Date of Service: Aug 20, 2024 Billing Provider: ESTEFANÍA SOLIS MD Common Visit Codes: NOT BILLABLE ESTEFANÍA SOLIS MD 08/20/24 1634: Review of Systems Allergies: Coded Allergies: NO KNOWN ALLERGIES (Unverified , 03/13/14) Additional Comments Additional Comments Additional Comments 63-year-old female with a known history of chronic asthma initiation of the hospital with flu-like symptoms shortness breath found to have 1. Acute hypoxic respiratory failure secondary to acute viral pneumonia 2. Acute one pneumonia with positive COVID-19 3. Chronic asthma -remdesivir, dexamethasone, contact droplet isolation -continue O2 supplementation -infectious disease consultation. FITZ KAMARA NP Aug 20, 2024 04:26 ESTEFANÍA SOLIS MD Aug 20, 2024 16:34
[2024-08-20 06:50] LABS: Alanine Aminotransferase 28 U/L (7-40); Alkaline Phosphatase 87 U/L (46-116); Anion Gap 8 (5-15); BUN/Creatinine Ratio 13.2 (10.0-20.0); Blood Urea Nitrogen 10 mg/dL (9-23); Calcium 10.2 mg/dL (8.7-10.4); Carbon Dioxide 28 mmol/L (20-31); Chloride 103 mmol/L (98-107); Potassium 4.4 mmol/L (3.5-5.1); Sodium 139 mmol/L (136-145)
[2024-08-20 06:51] LABS: Albumin 4.7 g/dL (3.2-4.8); Aspartate Aminotransferase 18 U/L (13-40); Basophils # (auto) 0 10 ^3/uL (0-0.2); Bilirubin, Total 0.4 mg/dL (0.2-1.0); Eosinophils # (auto) 0 10 ^3/uL (0-0.8); Glucose 151 mg/dL (74-106); Hematocrit 45.6 % (36.0-46.0); Hemoglobin 15.3 g/dL (12.2-16.2); Lymphocytes # (auto) 0.6 10 ^3/uL (0.4-5.4); Mean Corpuscular Hemoglobin 30.3 pg (28.0-32.0); Mean Corpuscular Hgb Conc. 33.5 g/dL (32.0-36.0); Mean Corpuscular Volume 90.5 fL (80.0-100.0); Monocytes # (auto) 0.1 10 ^3/uL (0-1.3); Monocytes % (auto) 1.3 % (0.0-12.0); Neutrophils # (auto) 8.2 10 ^3/uL (1.6-8.6); Neutrophils % (auto) 91.7 % (37.0-80.0); Platelet Count (auto) 310 10^3/uL (140-450); Red Blood Cells 5.04 10^6/uL (4.0-5.20); Red Cell Distribution Width 13.1 % (11.8-14.3); Total Protein 7.6 g/dL (5.7-8.2)
[2024-08-20] MEDS ORDERED: REMDESIVIR PER PHARMACY 0 ML IV SCH (09:45)
--- NOTE | 2024-08-20 09:49 | DVHINCON2 ---
Date of service: Aug 20, 2024 Referring Physician MICHELINE Hensley Reason for Consultation Acute hypoxic respiratory failure, COVID 19 infection History of Present Illness 63-year-old woman history of asthma presented with upper respiratory symptoms. She recently had a COVID positive contact with a family member. She also states that she recently tested positive for COVID. On the ED arrival she presented with a pulse oximetry reading of 97% on room air. She had later required placement on 6 liters/minute via OxyMask. Pulmonary consultation is called due to acute hypoxic respiratory failure secondary to COVID-19 infection. Review of systems: 14 point review of systems is negative unless otherwise noted above. Past medical history: Asthma, morbid obesity Past surgical history: , cholecystectomy, bilateral tubal ligation Medications: Reviewed Allergies: No known drug allergies. Family history: No family history of premature CAD. No family history of lung disease Social history: Nonsmoker. No alcohol or illicit drug use. Lives at home. Family History: Asthma G8 FATHER Congestive heart failure G8 FATHER Diabetes mellitus G8 MOTHER Hypertension G8 FATHER Allergies: Coded Allergies: NO KNOWN ALLERGIES (Unverified , 03/13/14) Home Meds Active Scripts Prednisone (Prednisone) 20 Mg Tab, 20 MG PO DAILY for 5 Days, #5 MG Prov:JEREMY ORONA MD 08/19/24 Cyclobenzaprine Hcl (Cyclobenzaprine Hcl) 5 Mg Tab, 1 TAB PO QHSP PRN for 30 Days, #30 TAB 0 Refills Prov:MARICRUZ RAMIREZ NP 06/07/24 Meloxicam (Meloxicam) 7.5 Mg Tab, 1 TAB PO DAILY for 30 Days, #30 TAB 0 Refills Prov:MARICRUZ RAMIREZ NP 06/07/24 Montelukast Sodium (Singulair) 10 Mg Tab, 10 MG PO DAILY, #30 TAB Prov:KENYATTA PALACIOS MD 12/28/21 Azithromycin (Azithromycin) 500 Mg Tab, 1 TAB PO DAILY, #5 TAB Prov:KENYATTA PALACIOS MD 12/28/21 Famotidine (PEPCID TABLET) 20 Mg Tb, 1 TAB PO BID, #30 TAB Prov:KENYATTA PALACIOS MD 12/28/21 Prednisone (Prednisone) 20 Mg Tab, 20 MG PO BID, #14 MG Prov:KENYATTA PALACIOS MD 12/28/21 Ipratropium-Albuterol (Ipratropium [place]/Albut) 1 Jessica Jessica, 1 JESSICA IN TIDBM, #60 ML Prov:KENYATTA PALACIOS MD 12/28/21 Albuterol Sulfate (Ventolin) 2.5 Mg/0.5 Ml Nb, 2.5 MG NEB Q6HR PRN for 30 Days, #20 INH Prov:KENYATTA PALACIOS MD 10/03/20 Reported Medications Famotidine (PEPCID TABLET) 20 Mg Tb, 1 TAB PO BIDP, #60 TAB 3 Refills 12/27/21 Current Medications Current Medications Medications (Trade) Dose Ordered Sig/Gerry Route PRN Reason Start Time Stop Time Status Last Admin Acetaminophen (Tylenol Tablet) 325 mg Q4HP PRN PO MILD PAIN (1-3 PAIN SCALE) 08/19/24 17:45 Enoxaparin Sodium (Lovenox) 40 mg DAILY SC 08/20/24 10:00 Zinc Sulfate 220 mg DAILY PO 08/20/24 10:00 Ascorbic Acid (Vitamin C Tablet) 500 mg BID PO 08/19/24 22:00 08/19/24 22:22 Nitroglycerin (Ntrostat Sublingual) 0.4 mg Q5MINP PRN SL FOR CHEST PAIN 08/19/24 17:45 Morphine Sulfate 2 mg Q30M PRN IV FOR CHEST PAIN 08/19/24 17:45 Dexamethasone Sodium Phosphate (Decadron Injection) 6 mg DAILY IV 08/20/24 10:00 Albuterol (Ventolin Hfa) 180 mcg TID IN 08/20/24 06:00 Pantoprazole Sodium (Protonix) 40 mg DAILY IV 08/20/24 10:00 Vital Signs Vital Signs Date Time Temp Pulse Resp B/P (MAP) Pulse Ox O2 Delivery O2 Flow Rate FiO2 08/20/24 09:19 97.9 74 16 112/61 (78) 96 97.9 08/19/24 23:43 Simple Mask* 9 90 Physical Exam Gen.: Patient lying in bed in no apparent distress. On supplemental oxygen. Head: Normocephalic, atraumatic Eyes: EOMI/PERRLA. Ears: Normal hearing. Normal anatomy. Neck/trachea: Trachea midline, supple. Nose: Normal external anatomy. Mouth: Moist mucous membranes. Chest: Decrease air entry bilaterally. No wheezing or rhonchi. Cardio vascular: Positive S1, positive S2. Regular rate and rhythm. Abdomen: Positive bowel sounds in all 4 quadrants. Soft, non-tender, non- distended. : Deferred. Rectal: Deferred Skin: Warm, dry. Intact. Extremities: 2+ radial pulses bilaterally. No lower extremity edema. Neuro: Awake, alert, oriented x3. No gross motor or sensory deficits. Cranial nerves II through XII intact. Gait not assessed. Labs/Diagnostic Data Labs Test 08/20/24 05:51 08/19/24 21:05 08/19/24 15:45 Range/Units White Blood Count 9.0 4.4-10.8 10^3/uL Red Blood Count 5.04 4.0-5.20 10^6/uL Hemoglobin 15.3 12.2-16.2 g/dL Hematocrit 45.6 36.0-46.0 % Mean Corpuscular Volume 90.5 80.0-100.0 fL Mean Corpuscular Hemoglobin 30.3 28.0-32.0 pg Mean Corpuscular Hemoglobin Concent 33.5 32.0-36.0 g/dL Red Cell Distribution Width 13.1 11.8-14.3 % Platelet Count 310 140-450 10^3/uL Mean Platelet Volume 7.1 6.9-10.8 fL Neutrophils (%) (Auto) 91.7 H 37.0-80.0 % Lymphocytes (%) (Auto) 7.0 L 10.0-50.0 % Monocytes (%) (Auto) 1.3 0.0-12.0 % Eosinophils (%) (Auto) 0.0 0.0-7.0 % Basophils (%) (Auto) 0.0 0.0-2.0 % Neutrophils # (Auto) 8.2 1.6-8.6 10 ^3/uL Lymphocytes # (Auto) 0.6 0.4-5.4 10 ^3/uL Monocytes # (Auto) 0.1 0-1.3 10 ^3/uL Eosinophils # (Auto) 0 0-0.8 10 ^3/uL Basophils # (Auto) 0 0-0.2 10 ^3/uL Nucleated Red Blood Cells 0.0 % Sodium Level 139 136-145 mmol/L Potassium Level 4.4 3.5-5.1 mmol/L Chloride Level 103 98-107 mmol/L Carbon Dioxide Level 28 20-31 mmol/L Anion Gap 8 5-15 Blood Urea Nitrogen 10 9-23 mg/dL Creatinine 0.76 0.550-1.02 mg/dL Glomerular Filtration Rate Calc 89 >90 mL/min BUN/Creatinine Ratio 13.2 10.0-20.0 Serum Glucose 151 H 74-106 mg/dL Calcium Level 10.2 8.7-10.4 mg/dL Total Bilirubin 0.4 0.2-1.0 mg/dL Aspartate Amino Transferase (AST) 18 13-40 U/L Alanine Aminotransferase (ALT) 28 7-40 U/L Alkaline Phosphatase 87 46-116 U/L Total Protein 7.6 5.7-8.2 g/dL Albumin 4.7 3.2-4.8 g/dL Urine Color Yellow Yellow Urine Clarity Clear Clear Urine pH 5.5 5.0-9.0 Urine Specific [place] 1.025 1.001-1.035 Urine Protein Negative Negative Urine Ketones 1+ H Negative Urine Blood Trace H Negative /uL Urine Nitrite Negative Negative Urine Bilirubin Negative Negative Urine Urobilinogen Normal Negative mg/dL Urine Leukocyte Esterase Negative Negative /uL Urine RBC 6 0 - 4 /hpf Urine WBC 1 0 - 5 /hpf Urine Squamous Epithelial Cells Few <5 /hpf Urine Bacteria Few H None Seen /hpf Urine Mucus Few None Seen Urine Glucose Normal Normal mg/dL Influenza Type A Antigen Negative Negative Influenza Type B Antigen Negative Negative SARS-CoV-2 Antigen (Rapid) Positive NEGATIVE Assessment Impression Acute hypoxic respiratory failure 2/2 COVID 19 infection COVID 19 infection Viral Pneumonia Atelectasis Morbid obesity 42.6 Asthma Plan: Supplemental o2 Keep o2 saturation above 92% Taper o2 down as tolerated On 9 LPM via oxymask, transitioned to 5 LPM via NC. Continue Decadron 6 mg IVP qdaily for 10 days. Start Remdesivir course Vitamin supplementation Deep breathing exercises/IS. Albuterol HFA [id number] PRN SOB/Wheezing. Diet and lifestyle modifications for weight reduction. DVT prophylaxis Prognosis: Poor given multiple comorbidities. Rest of plan per hospitalist and other consultants. Thank you MICHELINE Hensley for allowing me to participate in this patient's care. Further recommendations will depend on patient's clinical course. Please do not hesitate to contact me if you have any questions or concerns. This medical document was created using an electronic medical record system with [employer] dictation system. Although this document has been carefully reviewed, there may still be some phonetic and typographical errors. These areas are purely typographical due to imperfections of the software programs, and do not reflect any compromise in the patient's medical care. Plan discussed with: Patient, Other (RADHA Mcdonald, OUTREACH DIRECTOR) KORTNEY HARRISON MD Aug 20, 2024 09:49
--- NOTE | 2024-08-20 09:51 | DVHINCON2 ---
Date of service: Aug 20, [address] Gonzáles Reason for Consultation COVID History of Present Illness Patient is a 63-year-old female presents to the hospital for the complaint of upper respiratory symptoms for the past 4 days. She denies any dizziness, chest pain, nausea, vomiting or diarrhea. Patient states she recently tested Positive for COVID-19. She endorsed sick contact by family Positive for COVID-19 On arrival to the emergency department she presented hemodynamically stable with a documented oxygen saturation of 97% on room air. Further evaluation, while the patient was in the emergency department demonstrated that the patient was requiring supplemental oxygen and placed on 6 L oxy mask. Chest x-ray revealed: Frontal chest radiograph demonstrates no acute osseous or superficial soft tissue abnormalities. The trachea is midline. The cardiac silhouette and mediastinum are within normal limits. No pneumothorax, pleural effusions, or consolidations. Past Medical History Patient's past medical history is significant for asthma. Family History: Asthma G8 FATHER Congestive heart failure G8 FATHER Diabetes mellitus G8 MOTHER Hypertension G8 FATHER Social History Smoke: No ALCOHOL: none Drugs: None Lives: with Family Allergies: Coded Allergies: NO KNOWN ALLERGIES (Unverified , 03/13/14) Home Meds Active Scripts Prednisone (Prednisone) 20 Mg Tab, 20 MG PO DAILY for 5 Days, #5 MG Prov:JEREMY ORONA MD 08/19/24 Cyclobenzaprine Hcl (Cyclobenzaprine Hcl) 5 Mg Tab, 1 TAB PO QHSP PRN for 30 Days, #30 TAB 0 Refills Prov:MARICRUZ RAMIREZ NP 06/07/24 Meloxicam (Meloxicam) 7.5 Mg Tab, 1 TAB PO DAILY for 30 Days, #30 TAB 0 Refills Prov:MARICRUZ RAMIREZ NP 06/07/24 Montelukast Sodium (Singulair) 10 Mg Tab, 10 MG PO DAILY, #30 TAB Prov:KENYATTA PALACIOS MD 12/28/21 Azithromycin (Azithromycin) 500 Mg Tab, 1 TAB PO DAILY, #5 TAB Prov:KENYATTA PALACIOS MD 12/28/21 Famotidine (PEPCID TABLET) 20 Mg Tb, 1 TAB PO BID, #30 TAB Prov:KENYATTA PALACIOS MD 12/28/21 Prednisone (Prednisone) 20 Mg Tab, 20 MG PO BID, #14 MG Prov:KENYATTA PALACIOS MD 12/28/21 Ipratropium-Albuterol (Ipratropium Wayne/Albut) 1 Mukund Mukund, 1 MUKUND IN TIDBM, #60 ML Prov:KENYATTA PALACIOS MD 12/28/21 Albuterol Sulfate (Ventolin) 2.5 Mg/0.5 Ml Nb, 2.5 MG NEB Q6HR PRN for 30 Days, #20 INH Prov:KENYATTA PALACIOS MD 10/03/20 Reported Medications Famotidine (PEPCID TABLET) 20 Mg Tb, 1 TAB PO BIDP, #60 TAB 3 Refills 12/27/21 Current Medications Current Medications Medications (Trade) Dose Ordered Sig/Gerry Route PRN Reason Start Time Stop Time Status Last Admin Acetaminophen (Tylenol Tablet) 325 mg Q4HP PRN PO MILD PAIN (1-3 PAIN SCALE) 08/19/24 17:45 Enoxaparin Sodium (Lovenox) 40 mg DAILY SC 08/20/24 10:00 Zinc Sulfate 220 mg DAILY PO 08/20/24 10:00 08/20/24 09:47 DC Ascorbic Acid (Vitamin C Tablet) 500 mg BID PO 08/19/24 22:00 08/20/24 09:47 DC 08/19/24 22:22 Nitroglycerin (Ntrostat Sublingual) 0.4 mg Q5MINP PRN SL FOR CHEST PAIN 08/19/24 17:45 Morphine Sulfate 2 mg Q30M PRN IV FOR CHEST PAIN 08/19/24 17:45 Dexamethasone Sodium Phosphate (Decadron Injection) 6 mg DAILY IV 08/20/24 10:00 Albuterol (Ventolin Hfa) 180 mcg TID IN 08/20/24 06:00 Pantoprazole Sodium (Protonix) 40 mg DAILY IV 08/20/24 10:00 Remdesivir 0 ml @ 0 mls/hr PER PHARMACY IV 08/20/24 09:45 08/24/24 09:46 UNV Ascorbic Acid (Vitamin C Tablet) 1,000 mg BID PO 08/20/24 10:00 UNV Zinc Sulfate 220 mg DAILY PO 08/20/24 10:00 UNV Review of Systems Constitutional: Reports Fever, Malaise; No: Chills, Sweats, Weakness, Other Eyes: No: Pain, Vision change, Conjunctivae inflammation, Eyelid inflammation, Other, Redness Respiratory: Reports Cough, Shortness of breath; No: Dry, SOB with excertion, Wheezing, Hemoptysis, Pleuritic Pain, Sputum, Wheezing, Other Cardiovascular: No: Chest Pain, Palpitations, Orthopnea, Paroxysmal Noc. Dyspnea, Edema, Lt Headedness, Other Gastrointestinal: No: Nausea, Vomiting, diarrhea, Abdominal Pain, Diarrhea, Constipation, Melena, Hematochezia, Other Genitourinary: No Dysuria, No Frequency, No Incontinence, No Hematuria, No Retention, No Other Musculoskeletal: No: other, neck pain, shoulder pain, arm pain, back pain, hand pain, leg pain, foot pain Skin: No: Rash, Lesions, Jaundice, Bruising, Other Neurological: No: Dizziness, Weakness, Numbness, Incoordination, Change in speech, Confusion, Seizures, Other Vital Signs Vital Signs Date Time Temp Pulse Resp B/P (MAP) Pulse Ox O2 Delivery O2 Flow Rate FiO2 08/20/24 09:19 97.9 74 16 112/61 (78) 96 97.9 08/19/24 23:43 Simple Mask* 9 90 Physical Exam General Appearance: Alert, Oriented X3, Cooperative, moderate distress HEENT: Atraumatic, PERRLA Respiratory: Clear to auscultation, Normal air movement Cardiovascular: Regular rate, Normal S1, Normal S2 Abdominal: Normal bowel sounds, Soft, No tenderness Extremities: No clubbing, No cyanosis, No edema Skin: No rashes, No breakdown Neuro: Normal speech, Strength at 5/5 X4 ext, Cranial nerves 3-12 NL Psych/Mental Status: Mental status NL, Mood NL Labs/Diagnostic Data Labs Test 08/20/24 05:51 08/19/24 21:05 08/19/24 15:45 Range/Units White Blood Count 9.0 4.4-10.8 10^3/uL Red Blood Count 5.04 4.0-5.20 10^6/uL Hemoglobin 15.3 12.2-16.2 g/dL Hematocrit 45.6 36.0-46.0 % Mean Corpuscular Volume 90.5 80.0-100.0 fL Mean Corpuscular Hemoglobin 30.3 28.0-32.0 pg Mean Corpuscular Hemoglobin Concent 33.5 32.0-36.0 g/dL Red Cell Distribution Width 13.1 11.8-14.3 % Platelet Count 310 140-450 10^3/uL Mean Platelet Volume 7.1 6.9-10.8 fL Neutrophils (%) (Auto) 91.7 H 37.0-80.0 % Lymphocytes (%) (Auto) 7.0 L 10.0-50.0 % Monocytes (%) (Auto) 1.3 0.0-12.0 % Eosinophils (%) (Auto) 0.0 0.0-7.0 % Basophils (%) (Auto) 0.0 0.0-2.0 % Neutrophils # (Auto) 8.2 1.6-8.6 10 ^3/uL Lymphocytes # (Auto) 0.6 0.4-5.4 10 ^3/uL Monocytes # (Auto) 0.1 0-1.3 10 ^3/uL Eosinophils # (Auto) 0 0-0.8 10 ^3/uL Basophils # (Auto) 0 0-0.2 10 ^3/uL Nucleated Red Blood Cells 0.0 % Sodium Level 139 136-145 mmol/L Potassium Level 4.4 3.5-5.1 mmol/L Chloride Level 103 98-107 mmol/L Carbon Dioxide Level 28 20-31 mmol/L Anion Gap 8 5-15 Blood Urea Nitrogen 10 9-23 mg/dL Creatinine 0.76 0.550-1.02 mg/dL Glomerular Filtration Rate Calc 89 >90 mL/min BUN/Creatinine Ratio 13.2 10.0-20.0 Serum Glucose 151 H 74-106 mg/dL Calcium Level 10.2 8.7-10.4 mg/dL Total Bilirubin 0.4 0.2-1.0 mg/dL Aspartate Amino Transferase (AST) 18 13-40 U/L Alanine Aminotransferase (ALT) 28 7-40 U/L Alkaline Phosphatase 87 46-116 U/L Total Protein 7.6 5.7-8.2 g/dL Albumin 4.7 3.2-4.8 g/dL Urine Color Yellow Yellow Urine Clarity Clear Clear Urine pH 5.5 5.0-9.0 Urine Specific [place] 1.025 1.001-1.035 Urine Protein Negative Negative Urine Ketones 1+ H Negative Urine Blood Trace H Negative /uL Urine Nitrite Negative Negative Urine Bilirubin Negative Negative Urine Urobilinogen Normal Negative mg/dL Urine Leukocyte Esterase Negative Negative /uL Urine RBC 6 0 - 4 /hpf Urine WBC 1 0 - 5 /hpf Urine Squamous Epithelial Cells Few <5 /hpf Urine Bacteria Few H None Seen /hpf Urine Mucus Few None Seen Urine Glucose Normal Normal mg/dL Influenza Type A Antigen Negative Negative Influenza Type B Antigen Negative Negative SARS-CoV-2 Antigen (Rapid) Positive NEGATIVE Assessment Patient is a 63 -year-old male with 1. COVID-19 infection 2. Acute hypoxic respiratory failure Recommendations 1. Continue Remdesivir for 5 days 2. Continue Dexamethasone 6 mg per daily for 10 days or until discharge 3. Consider self proning Thank you for opportunity to take care of the patient. Plan discussed with the nurse and physician. Plan discussed with: Patient LIS LANDRY MD Aug 20, 2024 09:51
[2024-08-20] MEDS ORDERED: ZINC SULFATE 220mg CAP or TAB PO SCH (10:00)
[2024-08-20] MEDS: DexAMETHasone SOD PHOS 10MG/1ML VIAL INJ IV SCH (10:02)
[2024-08-20] MEDS: PANTOPRAZOLE 40 MG/10 ML VIAL INJ IV SCH (10:02)
[2024-08-20] MEDS: ASCORBIC ACID 500 MG TAB PO SCH (10:02)
[2024-08-20] MEDS: ENOXAPARIN SOD 40 MG/0.4 ML SYRINGE SC SCH (10:02)
[2024-08-20] MEDS: ZINC SULFATE 220mg CAP or TAB PO SCH (10:02)
[2024-08-20] MEDS: REMDESIVIR 200mg in NS 210mL LOADING DOSE ADULT IV ONE (13:00)
[2024-08-20] MEDS: ALBUTEROL SULF HFA 90MCG INH 200DOSE IN SCH (14:00)
[2024-08-21] VITALS (12 sets, daily range): BP systolic 93–118; BP diastolic 46–58; PULSE 66–86; RESP 17–19; TEMP 97.7–98.3; O2SAT 94–98
[2024-08-21 05:09] LABS: Basophils # (auto) 0 10 ^3/uL (0-0.2); Basophils % (auto) 0.1 % (0.0-2.0); Eosinophils # (auto) 0 10 ^3/uL (0-0.8); Hematocrit 39.9 % (36.0-46.0); Hemoglobin 13.2 g/dL (12.2-16.2); Lymphocytes # (auto) 1.4 10 ^3/uL (0.4-5.4); Lymphocytes % (auto) 7.9 % (10.0-50.0); Mean Corpuscular Hemoglobin 29.5 pg (28.0-32.0); Mean Corpuscular Hgb Conc. 33.1 g/dL (32.0-36.0); Mean Corpuscular Volume 89.1 fL (80.0-100.0); Monocytes # (auto) 1.2 10 ^3/uL (0-1.3); Neutrophils # (auto) 15.1 10 ^3/uL (1.6-8.6); Nucleated Red Blood Cells % 0.1 %; Platelet Count (auto) 320 10^3/uL (140-450); Red Blood Cells 4.48 10^6/uL (4.0-5.20); Red Cell Distribution Width 13.1 % (11.8-14.3); White Blood Cell 17.7 10^3/uL (4.4-10.8)
[2024-08-21 05:13] LABS: Chloride 106 mmol/L (98-107); Potassium 4.1 mmol/L (3.5-5.1); Sodium 139 mmol/L (136-145)
[2024-08-21 05:14] LABS: Anion Gap 5 (5-15); Calcium 9.5 mg/dL (8.7-10.4); Carbon Dioxide 28 mmol/L (20-31)
[2024-08-21 05:19] LABS: Blood Urea Nitrogen 15 mg/dL (9-23); Glucose 121 mg/dL (74-106)
--- NOTE | 2024-08-21 10:20 | DVHPN2 ---
Progress Note - Dictate Date Seen: Aug 21, 2024 Subjective Patient was seen and evaluated. She is awake and alert x4. No S/S of distress/SOB or pain. 08/19: Chest x-ray revealed: Frontal chest radiograph demonstrates no acute osseous or superficial soft tissue abnormalities. The trachea is midline. The cardiac silhouette and mediastinum are within normal limits. No pneumothorax, pleural effusions, or consolidations. 08/20: MRSA screening: Positive vital signs Vital Sign Date Time Temp Pulse Resp B/P (MAP) Pulse Ox O2 Delivery O2 Flow Rate FiO2 08/21/24 08:13 98.2 79 17 105/47 (66) 94 98.2 08/21/24 07:37 Nasal Cannula* 3 32 Total Intake and Output 08/20/24 08/20/24 08/21/24 15:00 23:00 07:00 Intake Total 250 ml 750 ml 450 ml Balance 250 ml 750 ml 450 ml medications Current Medications Medications Dose Ordered Sig/Gerry Route Start Time Stop Time Status Last Admin Dose Admin Acetaminophen 325 mg Q4HP PRN PO 08/19/24 17:45 Enoxaparin Sodium 40 mg DAILY SC 08/20/24 10:00 08/21/24 09:58 40 MG Nitroglycerin 0.4 mg Q5MINP PRN SL 08/19/24 17:45 Morphine Sulfate 2 mg Q30M PRN IV 08/19/24 17:45 Dexamethasone Sodium Phosphate 6 mg DAILY IV 08/20/24 10:00 08/21/24 09:58 6 MG Albuterol 180 mcg TID IN 08/20/24 06:00 08/21/24 06:35 180 MCG Pantoprazole Sodium 40 mg DAILY IV 08/20/24 10:00 08/21/24 09:58 40 MG Remdesivir 0 ml @ 0 mls/hr PER PHARMACY IV 08/20/24 09:45 08/24/24 09:46 Ascorbic Acid 1,000 mg BID PO 08/20/24 10:00 08/21/24 09:58 1,000 MG Zinc Sulfate 220 mg DAILY PO 08/20/24 10:00 08/21/24 09:57 220 MG Remdesivir 100 mg/ Sodium Chloride 250 ml @ 250 mls/hr DAILY@1500 IV 08/21/24 15:00 08/24/24 15:59 objective General Appearance: Alert, Oriented X3, Cooperative, moderate distress HEENT: Atraumatic, PERRLA Respiratory: Clear to auscultation, Normal air movement Cardiovascular: Regular rate, Normal S1, Normal S2 Abdominal: Normal bowel sounds, Soft, No tenderness Extremities: No clubbing, No cyanosis, No edema Skin: No rashes, No breakdown Neuro: Normal speech, Strength at 5/5 X4 ext, Cranial nerves 3-12 NL Psych/Mental Status: Mental status NL, Mood NL laboratory and microbiology Laboratory Tests 08/21/24 04:43 Test 08/21/24 04:43 Range/Units Serum Glucose 121 H 74-106 mg/dL Assessment/Plan Patient is a 63 -year-old male with 1. COVID-19 infection 2. Acute hypoxic respiratory failure Recommendations 1. Continue Remdesivir for 5 days 2. Continue Dexamethasone 6 mg per daily for 10 days or until discharge 3. Consider self proning Thank you for opportunity to take care of the patient. Plan discussed with the nurse and physician. LIS LANDRY MD Aug 21, 2024 10:20
--- NOTE | 2024-08-21 14:05 | DVHPN2 ---
Progress Note - Dictate Date Seen: Aug 21, 2024 Medical Necessity Reason Pt with a Central, PICC or Fol: No Subjective Patient seen and examined at bedside On supplemental oxygen Feeling better No overnight events. vital signs Vital Sign Date Time Temp Pulse Resp B/P (MAP) Pulse Ox O2 Delivery O2 Flow Rate FiO2 08/21/24 11:42 98.1 66 17 93/54 (67) 98 98.1 08/21/24 07:37 Nasal Cannula* 3 32 Total Intake and Output 08/20/24 08/20/24 08/21/24 15:00 23:00 07:00 Intake Total 250 ml 750 ml 450 ml Balance 250 ml 750 ml 450 ml medications Current Medications Medications Dose Ordered Sig/Gerry Route Start Time Stop Time Status Last Admin Dose Admin Acetaminophen 325 mg Q4HP PRN PO 08/19/24 17:45 Enoxaparin Sodium 40 mg DAILY SC 08/20/24 10:00 08/21/24 09:58 40 MG Nitroglycerin 0.4 mg Q5MINP PRN SL 08/19/24 17:45 Morphine Sulfate 2 mg Q30M PRN IV 08/19/24 17:45 Dexamethasone Sodium Phosphate 6 mg DAILY IV 08/20/24 10:00 08/21/24 09:58 6 MG Albuterol 180 mcg TID IN 08/20/24 06:00 08/21/24 06:35 180 MCG Pantoprazole Sodium 40 mg DAILY IV 08/20/24 10:00 08/21/24 09:58 40 MG Remdesivir 0 ml @ 0 mls/hr PER PHARMACY IV 08/20/24 09:45 08/24/24 09:46 Ascorbic Acid 1,000 mg BID PO 08/20/24 10:00 08/21/24 09:58 1,000 MG Zinc Sulfate 220 mg DAILY PO 08/20/24 10:00 08/21/24 09:57 220 MG Remdesivir 100 mg/ Sodium Chloride 250 ml @ 250 mls/hr DAILY@1500 IV 08/21/24 15:00 08/24/24 15:59 objective Gen.: Patient lying in bed in no apparent distress. On supplemental oxygen. Head: Normocephalic, atraumatic Eyes: EOMI/PERRLA. Ears: Normal hearing. Normal anatomy. Neck/trachea: Trachea midline, supple. Nose: Normal external anatomy. Mouth: Moist mucous membranes. Chest: Decrease air entry bilaterally. No wheezing or rhonchi. Cardio vascular: Positive S1, positive S2. Regular rate and rhythm. Abdomen: Positive bowel sounds in all 4 quadrants. Soft, non-tender, non- distended. : Deferred. Rectal: Deferred Skin: Warm, dry. Intact. Extremities: 2+ radial pulses bilaterally. No lower extremity edema. Neuro: Awake, alert, oriented x3. No gross motor or sensory deficits. Cranial nerves II through XII intact. Gait not assessed. laboratory and microbiology Laboratory Tests 08/21/24 04:43 Test 08/21/24 04:43 Range/Units Serum Glucose 121 H 74-106 mg/dL Assessment/Plan Impression Acute hypoxic respiratory failure 2/2 COVID 19 infection COVID 19 infection Viral Pneumonia Atelectasis Morbid obesity 43.3 Asthma Events: Patient's O2 requirements have decreased to 2 liters/minute via nasal cannula. Continue Decadron course. Continue antibiotics Patient can be discharged after completion of 3rd dose of remdesivir. Albuterol HFA as needed. Patient is feeling better and breathing much easier. Discussed with RADHA Mcdonald Plan: Supplemental o2 Keep o2 saturation above 92% Taper o2 down as tolerated On 9 LPM via oxymask, transitioned to 5 LPM via NC. Continue Decadron 6 mg IVP qdaily for 10 days. Start Remdesivir course Vitamin supplementation Deep breathing exercises/IS. Albuterol HFA [id number] PRN SOB/Wheezing. Diet and lifestyle modifications for weight reduction. DVT prophylaxis Prognosis: Poor given multiple comorbidities. Rest of plan per hospitalist and other consultants. Thank you Dr Gonzáels for allowing me to participate in this patient's care. Further recommendations will depend on patient's clinical course. Please do not hesitate to contact me if you have any questions or concerns. This medical document was created using an electronic medical record system with [employer] dictation system. Although this document has been carefully reviewed, there may still be some phonetic and typographical errors. These areas are purely typographical due to imperfections of the software programs, and do not reflect any compromise in the patient's medical care. Plan discussed with: Patient, Other (RADHA Mcdonald MD) KORTNEY HARRISON MD Aug 21, 2024 14:05
[2024-08-21] MEDS: NS IV SCH (15:19)
[2024-08-21] MEDS: REMDESIVIR IV SCH (15:19)
--- NOTE | 2024-08-21 16:14 | DVHPN2 ---
Subjective Overnight events noted. Patient is currently getting remdesivir. Reviewed: Care Plan Changes from previous H/P or p: No Changes Eyes: No Pain, No Vision change, No Conjunctivae inflammation, No Eyelid inflammation, No Other, No Redness Cardiovascular: No Chest Pain, No Palpitations, No Orthopnea, No Paroxysmal Noc. Dyspnea, No Edema, No Lt Headedness, No Other Respiratory: Cough; No Dry; Shortness of breath; No SOB with excertion, No Wheezing, No Hemoptysis, No Pleuritic Pain, No Sputum, No Other Gastrointestinal: No Nausea, No Vomiting, No Abdominal Pain, No Diarrhea, No Constipation, No Melena, No Hematochezia, No Other Genitourinary: No Dysuria, No Frequency, No Incontinence, No Hematuria, No Retention, No Other Musculoskeletal: No other, No neck pain, No shoulder pain, No arm pain, No back pain, No hand pain, No leg pain, No foot pain Skin: No Rash, No Lesions, No Jaundice, No Bruising, No Other Objective Vitals Vital Signs Date Time Temp Pulse Resp B/P (MAP) Pulse Ox O2 Delivery O2 Flow Rate FiO2 08/21/24 14:37 73 18 94 08/21/24 14:37 Nasal Cannula 2.0 08/21/24 14:37 28 08/21/24 11:42 98.1 93/54 (67) 98.1 Intake/Output Intake and Output 08/21/24 07:00 Intake Total 1450 ml Balance 1450 ml Intake Oral 1200 ml IV Total 250 ml # Voids 7 # Bowel Movements 1 Exam HEENT pupils are reactive Neck is supple CV is S1-S2 regular rate and rhythm Respiratory diminished breath sounds bases GI positive bowel sound 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 Medications Current Medications Medications Dose Ordered Sig/Gerry Route Start Time Stop Time Status Last Admin Dose Admin Acetaminophen 325 mg Q4HP PRN PO 08/19/24 17:45 Enoxaparin Sodium 40 mg DAILY SC 08/20/24 10:00 08/21/24 09:58 40 MG Nitroglycerin 0.4 mg Q5MINP PRN SL 08/19/24 17:45 Morphine Sulfate 2 mg Q30M PRN IV 08/19/24 17:45 Dexamethasone Sodium Phosphate 6 mg DAILY IV 08/20/24 10:00 08/21/24 09:58 6 MG Albuterol 180 mcg TID IN 08/20/24 06:00 08/21/24 14:37 180 MCG Pantoprazole Sodium 40 mg DAILY IV 08/20/24 10:00 08/21/24 09:58 40 MG Remdesivir 0 ml @ 0 mls/hr PER PHARMACY IV 08/20/24 09:45 08/24/24 09:46 Ascorbic Acid 1,000 mg BID PO 08/20/24 10:00 08/21/24 09:58 1,000 MG Zinc Sulfate 220 mg DAILY PO 08/20/24 10:00 08/21/24 09:57 220 MG Remdesivir 100 mg/ Sodium Chloride 250 ml @ 250 mls/hr DAILY@1500 IV 08/21/24 15:00 08/24/24 15:59 08/21/24 15:19 250 MLS/HR Laboratory Results Laboratory Tests 08/21/24 04:43 Chemistry Test 08/21/24 04:43 Calcium Level 9.5 mg/dL (8.7-10.4) Urinalysis Test 08/19/24 21:05 Urine Color Yellow (Yellow) Urine Clarity Clear (Clear) Urine pH 5.5 (5.0-9.0) Urine Specific [place] 1.025 (1.001-1.035) Urine Protein Negative (Negative) Urine Ketones 1+ (Negative) H Urine Blood Trace /uL (Negative) H Urine Nitrite Negative (Negative) Urine Bilirubin Negative (Negative) Urine Urobilinogen Normal mg/dL (Negative) Urine Leukocyte Esterase Negative /uL (Negative) Urine RBC 6 /hpf (0 - 4) Urine WBC 1 /hpf (0 - 5) Urine Squamous Epithelial Cells Few /hpf (<5) Urine Bacteria Few /hpf (None Seen) H Urine Mucus Few (None Seen) Urine Glucose Normal mg/dL (Normal) Microbiology Microbiology Date/Time Source Procedure Growth Status 08/20/24 00:49 Nose MRSA Screen - Final Methicillin Resistant S.aureus Complete Assessment/Plan Assessment/Plan 63-year-old female with a known history of chronic asthma initiation of the hospital with flu-like symptoms shortness breath found to have 1. Acute hypoxic respiratory failure secondary to acute viral pneumonia 2. Acute one pneumonia with positive COVID-19 3. Chronic asthma -remdesivir, dexamethasone, O2 supplementation -respiratory/droplet isolation Plan discussed with: Patient Date of Service: Aug 21, 2024 Billing Provider: ESTEFANÍA SOLIS MD Common Visit Codes: NOT BILLABLE ESTEFANÍA SOLIS MD Aug 21, 2024 16:14
[2024-08-22] VITALS (12 sets, daily range): BP systolic 110–115; BP diastolic 48–65; PULSE 65–84; RESP 17–19; TEMP 97.4–98; O2SAT 92–96
[2024-08-22 06:04] LABS: Basophils # (auto) 0 10 ^3/uL (0-0.2); Basophils % (auto) 0.3 % (0.0-2.0); Eosinophils # (auto) 0 10 ^3/uL (0-0.8); Hematocrit 40.2 % (36.0-46.0); Hemoglobin 12.9 g/dL (12.2-16.2); Lymphocytes # (auto) 1.8 10 ^3/uL (0.4-5.4); Lymphocytes % (auto) 14.5 % (10.0-50.0); Mean Corpuscular Hemoglobin 29.1 pg (28.0-32.0); Mean Corpuscular Hgb Conc. 32.1 g/dL (32.0-36.0); Mean Corpuscular Volume 90.5 fL (80.0-100.0); Monocytes # (auto) 0.7 10 ^3/uL (0-1.3); Monocytes % (auto) 5.3 % (0.0-12.0); Neutrophils # (auto) 10.1 10 ^3/uL (1.6-8.6); Neutrophils % (auto) 79.9 % (37.0-80.0); Nucleated Red Blood Cells % 0.1 %; Platelet Count (auto) 307 10^3/uL (140-450); Red Blood Cells 4.44 10^6/uL (4.0-5.20); Red Cell Distribution Width 13.4 % (11.8-14.3); White Blood Cell 12.6 10^3/uL (4.4-10.8)
[2024-08-22 06:05] LABS: Calcium 9.8 mg/dL (8.7-10.4); Chloride 106 mmol/L (98-107); Potassium 4.3 mmol/L (3.5-5.1); Sodium 139 mmol/L (136-145)
[2024-08-22 06:06] LABS: Anion Gap 3 (5-15); Carbon Dioxide 30 mmol/L (20-31)
[2024-08-22 06:11] LABS: BUN/Creatinine Ratio 18.5 (10.0-20.0); Blood Urea Nitrogen 12 mg/dL (9-23); Glucose 112 mg/dL (74-106)
--- NOTE | 2024-08-22 13:09 | DVHPN2 ---
Progress Note - Dictate Date Seen: Aug 22, 2024 Medical Necessity Reason Pt with a Central, PICC or Fol: No Subjective Patient was seen and evaluated. She is awake and alert x4. No S/S of distress/SOB or pain. patient is getting remedesivir 08/19: Chest x-ray revealed: Frontal chest radiograph demonstrates no acute osseous or superficial soft tissue abnormalities. The trachea is midline. The cardiac silhouette and mediastinum are within normal limits. No pneumothorax, pleural effusions, or consolidations. 08/20: MRSA screening: Positive vital signs Vital Sign Date Time Temp Pulse Resp B/P (MAP) Pulse Ox O2 Delivery O2 Flow Rate FiO2 08/22/24 11:42 97.7 81 17 111/60 (77) 96 97.7 08/22/24 07:12 Nasal Cannula 2.0 08/22/24 07:12 28 Total Intake and Output 08/21/24 08/21/24 08/22/24 15:00 23:00 07:00 Intake Total 1900 ml 800 ml Output Total 600 ml Balance 1300 ml 800 ml medications Current Medications Medications Dose Ordered Sig/Gerry Route Start Time Stop Time Status Last Admin Dose Admin Acetaminophen 325 mg Q4HP PRN PO 08/19/24 17:45 Enoxaparin Sodium 40 mg DAILY SC 08/20/24 10:00 08/22/24 10:34 40 MG Nitroglycerin 0.4 mg Q5MINP PRN SL 08/19/24 17:45 Morphine Sulfate 2 mg Q30M PRN IV 08/19/24 17:45 Dexamethasone Sodium Phosphate 6 mg DAILY IV 08/20/24 10:00 08/22/24 10:34 6 MG Albuterol 180 mcg TID IN 08/20/24 06:00 08/22/24 07:12 180 MCG Pantoprazole Sodium 40 mg DAILY IV 08/20/24 10:00 08/22/24 10:34 40 MG Remdesivir 0 ml @ 0 mls/hr PER PHARMACY IV 08/20/24 09:45 08/24/24 09:46 Ascorbic Acid 1,000 mg BID PO 08/20/24 10:00 08/22/24 10:34 1,000 MG Zinc Sulfate 220 mg DAILY PO 08/20/24 10:00 08/22/24 10:34 220 MG Remdesivir 100 mg/ Sodium Chloride 250 ml @ 250 mls/hr DAILY@1500 IV 08/21/24 15:00 08/24/24 15:59 08/21/24 15:19 250 MLS/HR objective General Appearance: Alert, Oriented X3, Cooperative, moderate distress HEENT: Atraumatic, PERRLA Respiratory: Clear to auscultation, Normal air movement Cardiovascular: Regular rate, Normal S1, Normal S2 Abdominal: Normal bowel sounds, Soft, No tenderness Extremities: No clubbing, No cyanosis, No edema Skin: No rashes, No breakdown Neuro: Normal speech, Strength at 5/5 X4 ext, Cranial nerves 3-12 NL Psych/Mental Status: Mental status NL, Mood NL laboratory and microbiology Laboratory Tests 08/22/24 05:12 Test 08/22/24 05:12 Range/Units Serum Glucose 112 H 74-106 mg/dL Assessment/Plan Patient is a 63 -year-old male with 1. COVID-19 infection 2. Acute hypoxic respiratory failure Recommendations 1. Continue Remdesivir for 5 days 2. Continue Dexamethasone 6 mg per daily for 10 days or until discharge 3. Consider self proning Thank you for opportunity to take care of the patient. Plan discussed with the nurse and physician. LIS LANDRY MD Aug 22, 2024 13:08
[2024-08-22 14:23] LABS: Base Excess 3.6 mmol/L (-2.0-3.0)
[2024-08-22] MEDS ORDERED: METH4PAK PO (15:33)
--- NOTE | 2024-08-22 15:36 | DVHDS2 ---
Discharge Summary Date of Admission Aug 19, 2024 at 17:44 Date of Discharge: Aug 22, 2024 Labs/Diagnostic Data: Laboratory Results Test 08/22/24 14:20 08/22/24 05:12 08/20/24 05:51 08/19/24 21:05 Blood Gas Specimen Type Arterial Blood Gas Sample Site Left radial Blood Gas Patient Temperature 37.0 Arterial Blood Date Drawn [id number] Arterial Blood pH 7.439 (7.350-7.450) Arterial Blood Partial Pressure CO2 42.6 mmHg (32.0-45.0) Arterial Blood Partial Pressure O2 58.1 mmHg (83.0-108.0) Arterial Blood HCO3 28.2 mmol/L (21.0-28.0) Arterial Blood Oxygen Saturation 90.8 % (94.0-98.0) Arterial Blood Base Excess 3.6 mmol/L (-2.0-3.0) Arterial Blood Oxyhemoglobin 89.6 % (94.0-98.0) Arterial Blood Carboxyhemoglobin 1.0 % (0.5-1.5) Arterial Blood Methemoglobin 0.3 % (0.0-1.5) Ruddy Test Yes Blood Gas Total Hemoglobin 14.10 g/dL (12.0-16.0) Blood Gas Modality Room air FiO2 % 21.0 White Blood Count 12.6 10^3/uL (4.4-10.8) Red Blood Count 4.44 10^6/uL (4.0-5.20) Hemoglobin 12.9 g/dL (12.2-16.2) Hematocrit 40.2 % (36.0-46.0) Mean Corpuscular Volume 90.5 fL (80.0-100.0) Mean Corpuscular Hemoglobin 29.1 pg (28.0-32.0) Mean Corpuscular Hemoglobin Concent 32.1 g/dL (32.0-36.0) Red Cell Distribution Width 13.4 % (11.8-14.3) Platelet Count 307 10^3/uL (140-450) Mean Platelet Volume 7.3 fL (6.9-10.8) Neutrophils (%) (Auto) 79.9 % (37.0-80.0) Lymphocytes (%) (Auto) 14.5 % (10.0-50.0) Monocytes (%) (Auto) 5.3 % (0.0-12.0) Eosinophils (%) (Auto) 0.0 % (0.0-7.0) Basophils (%) (Auto) 0.3 % (0.0-2.0) Neutrophils # (Auto) 10.1 10 ^3/uL (1.6-8.6) Lymphocytes # (Auto) 1.8 10 ^3/uL (0.4-5.4) Monocytes # (Auto) 0.7 10 ^3/uL (0-1.3) Eosinophils # (Auto) 0 10 ^3/uL (0-0.8) Basophils # (Auto) 0 10 ^3/uL (0-0.2) Nucleated Red Blood Cells 0.1 % Sodium Level 139 mmol/L (136-145) Potassium Level 4.3 mmol/L (3.5-5.1) Chloride Level 106 mmol/L (98-107) Carbon Dioxide Level 30 mmol/L (20-31) Anion Gap 3 (5-15) Blood Urea Nitrogen 12 mg/dL (9-23) Creatinine 0.65 mg/dL (0.550-1.02) Glomerular Filtration Rate Calc 100 mL/min (>90) BUN/Creatinine Ratio 18.5 (10.0-20.0) Serum Glucose 112 mg/dL (74-106) Calcium Level 9.8 mg/dL (8.7-10.4) Total Bilirubin 0.4 mg/dL (0.2-1.0) Aspartate Amino Transferase (AST) 18 U/L (13-40) Alanine Aminotransferase (ALT) 28 U/L (7-40) Alkaline Phosphatase 87 U/L (46-116) Total Protein 7.6 g/dL (5.7-8.2) Albumin 4.7 g/dL (3.2-4.8) Urine Color Yellow (Yellow) Urine Clarity Clear (Clear) Urine pH 5.5 (5.0-9.0) Urine Specific [place] 1.025 (1.001-1.035) Urine Protein Negative (Negative) Urine Ketones 1+ (Negative) Urine Blood Trace /uL (Negative) Urine Nitrite Negative (Negative) Urine Bilirubin Negative (Negative) Urine Urobilinogen Normal mg/dL (Negative) Urine Leukocyte Esterase Negative /uL (Negative) Urine RBC 6 /hpf (0 - 4) Urine WBC 1 /hpf (0 - 5) Urine Squamous Epithelial Cells Few /hpf (<5) Urine Bacteria Few /hpf (None Seen) Urine Mucus Few (None Seen) Urine Glucose Normal mg/dL (Normal) Test 08/19/24 15:45 Influenza Type A Antigen Negative (Negative) Influenza Type B Antigen Negative (Negative) SARS-CoV-2 Antigen (Rapid) Positive (NEGATIVE) Other Laboratory Tests 08/22/24 05:12 Brief Hx & Hospital Course: 63-year-old female with a known history of chronic asthma initiation of the hospital with flu-like symptoms shortness breath found to have acute hypoxic failure secondary to acute viral pneumonia. Patient was on 19 admitted started on O2 supplementation dexamethasone and remdesivir was given. Patient was being seen by Pulmonary has been as Infectious Disease. Patient already got three doses off the meds reviewed. Patient will be given home oxygen home health. Patient was being discharged under stable condition. Condition at Discharge: Stable Final Diagnosis/Problems List 63-year-old female with a known history of chronic asthma initiation of the hospital with flu-like symptoms shortness breath found to have 1. Acute hypoxic respiratory failure secondary to acute viral pneumonia 2. Acute one pneumonia with positive COVID-19 3. Chronic asthma Discharge Disposition: Home with Health Services SN[facility] Discharge Will this Physician continue t: No Discharge Instruct/Medications Diet: Cardiac 2g Na,low cholest Activity: [id number] Follow Up/Referral: Follow up with PCP and Pulmonary in 1-2 weeks Medications: Medrol Dosepak Discharge Statement: "Patient was advised to return to the ER or call 911 if any headaches, dizziness, shortness of breath, chest pain, abdominal pain, bleeding, fevers, or worsening of medical condition. Patient was counseled about treatment plan, medications, possible side effects, patientverbalized understanding. All questions were answered to the best of my ability. This discharge took greater then 30 minutes in planning, reviewing documentation, counseling the patient, and discussing with other team members." ASSESSMENT ASSESSMENT Assessment 63-year-old female with a known history of chronic asthma initiation of the hospital with flu-like symptoms shortness breath found to have 1. Acute hypoxic respiratory failure secondary to acute viral pneumonia 2. Acute one pneumonia with positive COVID-19 3. Chronic asthma Date of Service: Aug 22, 2024 Billing Provider: ESTEFANÍA SOLIS MD Common Visit Codes: NOT BILLABLE ESTEFANÍA SOLIS MD Aug 22, 2024 15:36
--- NOTE | 2024-08-22 18:26 | DVHPN2 ---
Progress Note - Dictate Date Seen: Aug 22, 2024 Medical Necessity Reason Pt with a Central, PICC or Fol: No Subjective Patient seen and examined at bedside On supplemental oxygen Feeling better No overnight events. vital signs Vital Sign Date Time Temp Pulse Resp B/P (MAP) Pulse Ox O2 Delivery O2 Flow Rate FiO2 08/22/24 16:36 97.7 84 17 113/51 (71) 92 97.7 08/22/24 14:24 Room Air 0.0 08/22/24 14:24 21 Total Intake and Output 08/21/24 08/21/24 08/22/24 15:00 23:00 07:00 Intake Total 1900 ml 800 ml Output Total 600 ml Balance 1300 ml 800 ml medications Current Medications Medications Dose Ordered Sig/Gerry Route Start Time Stop Time Status Last Admin Dose Admin Acetaminophen 325 mg Q4HP PRN PO 08/19/24 17:45 Enoxaparin Sodium 40 mg DAILY SC 08/20/24 10:00 08/22/24 10:34 40 MG Nitroglycerin 0.4 mg Q5MINP PRN SL 08/19/24 17:45 Morphine Sulfate 2 mg Q30M PRN IV 08/19/24 17:45 Dexamethasone Sodium Phosphate 6 mg DAILY IV 08/20/24 10:00 08/22/24 10:34 6 MG Albuterol 180 mcg TID IN 08/20/24 06:00 08/22/24 14:24 180 MCG Pantoprazole Sodium 40 mg DAILY IV 08/20/24 10:00 08/22/24 10:34 40 MG Remdesivir 0 ml @ 0 mls/hr PER PHARMACY IV 08/20/24 09:45 08/24/24 09:46 Ascorbic Acid 1,000 mg BID PO 08/20/24 10:00 08/22/24 10:34 1,000 MG Zinc Sulfate 220 mg DAILY PO 08/20/24 10:00 08/22/24 10:34 220 MG Remdesivir 100 mg/ Sodium Chloride 250 ml @ 250 mls/hr DAILY@1500 IV 08/21/24 15:00 08/24/24 15:59 08/22/24 15:00 250 MLS/HR objective Gen.: Patient lying in bed in no apparent distress. On supplemental oxygen. Head: Normocephalic, atraumatic Eyes: EOMI/PERRLA. Ears: Normal hearing. Normal anatomy. Neck/trachea: Trachea midline, supple. Nose: Normal external anatomy. Mouth: Moist mucous membranes. Chest: Decrease air entry bilaterally. No wheezing or rhonchi. Cardio vascular: Positive S1, positive S2. Regular rate and rhythm. Abdomen: Positive bowel sounds in all 4 quadrants. Soft, non-tender, non- distended. : Deferred. Rectal: Deferred Skin: Warm, dry. Intact. Extremities: 2+ radial pulses bilaterally. No lower extremity edema. Neuro: Awake, alert, oriented x3. No gross motor or sensory deficits. Cranial nerves II through XII intact. Gait not assessed. laboratory and microbiology Laboratory Tests 08/22/24 05:12 Test 08/22/24 05:12 Range/Units Serum Glucose 112 H 74-106 mg/dL Assessment/Plan Impression Acute hypoxic respiratory failure 2/ COVID 19 infection COVID 19 infection Viral Pneumonia Atelectasis Morbid obesity 43.3 Asthma Events: Patient's O2 requirements have decreased to 2 liters/minute via nasal cannula. Taper down as tolerated Assess for home O2 requirements. Continue Decadron course. Bronchodilators - Albuterol HFA as needed. Continue antibiotics Patient received 3rd dose of remdesivir today. Patient is feeling better and breathing much easier. Patient is stable for discharge from the pulmonary standpoint. Rest of plan as noted below. Plan: Supplemental o2 Keep o2 saturation above 92% Decadron 6 mg IVP qdaily for 10 days. Remdesivir course Vitamin supplementation Deep breathing exercises/IS. Albuterol HFA [id number] PRN SOB/Wheezing. Diet and lifestyle modifications for weight reduction. DVT prophylaxis Prognosis: Poor given multiple comorbidities. Rest of plan per hospitalist and other consultants. Thank you Dr Gonzáles for allowing me to participate in this patient's care. Further recommendations will depend on patient's clinical course. Please do not hesitate to contact me if you have any questions or concerns. This medical document was created using an electronic medical record system with [employer] system. Although this document has been carefully reviewed, there may still be some phonetic and typographical errors. These areas are purely typographical due to imperfections of the software programs, and do not reflect any compromise in the patient's medical care. Plan discussed with: Patient, Other (KORTNEY Moseley MD Aug 22, 2024 18:26
== END 2024-08-22 22:30 | disposition home health service (06) | DRG 177 ==
LOC: ER 12:08 → TELE 17:44 → TELE-CENTR 17:48
PROVIDERS: ADMIT Emergency Medicine; ATTEND Internal Medicine
PROC: XW033E5 Introduction of Remdesivir Anti-infective into Peripheral Vein, Percutaneous Approach, New Technology Group 5 (ICD-10-PCS; principal; 2024-08-20)
DX: U07.1 COVID-19 (principal); J12.82 Pneumonia due to coronavirus disease 2019; J96.01 Acute respiratory failure with hypoxia; Z68.42 Body mass index [BMI] 45.0-49.9, adult; E66.01 Morbid (severe) obesity due to excess calories; J45.909 Unspecified asthma, uncomplicated; Z90.49 Acquired absence of other specified parts of digestive tract; Z82.5 Family history of asthma and other chronic lower respiratory diseases; Z82.49 Family history of ischemic heart disease and other diseases of the circulatory system; Z83.3 Family history of diabetes mellitus; Z86.16 Personal history of COVID-19; Z87.01 Personal history of pneumonia (recurrent)
CPT/HCPCS: 36415; 36600; 71045; 80048; 80053; 81001; 82805; 85025; 87081; 87426; 87804; 94640; 96374; 97110; 97116; 97163; 97530; 99291; G0378; J1100; J2470

== ENCOUNTER 2025-02-14 02:16 | Emergency (ER) | payer OTHER ==
[~2025-02-14] VITALS: Ht 160 cm; Wt 115.8 kg
[~2025-02-14 02:16] MED LIST changes: +METH4PAK PO; -PRED20TA2 PO
[2025-02-14 03:07] LABS: Alanine Aminotransferase 28 U/L (7-40); Albumin 4.3 g/dL (3.2-4.8); Alkaline Phosphatase 68 U/L (46-116); Anion Gap 7 (5-15); Aspartate Aminotransferase 21 U/L (13-40); BUN/Creatinine Ratio 12.1 (10.0-20.0); Bilirubin, Total 0.4 mg/dL (0.2-1.0); Calcium 9.6 mg/dL (8.7-10.4); Carbon Dioxide 28 mmol/L (20-31); Chloride 107 mmol/L (98-107); Potassium 3.9 mmol/L (3.5-5.1); Sodium 142 mmol/L (136-145); Total Protein 6.7 g/dL (5.7-8.2)
[2025-02-14 03:08] LABS: Blood Urea Nitrogen 8 mg/dL (9-23); Glucose 110 mg/dL (74-106)
[2025-02-14 03:10] VITALS: BP 144/65; TEMP 98.4
[2025-02-14 03:11] VITALS: PULSE 76; RESP 16; O2SAT 95
[2025-02-14] MEDS: ACETAMINOPHEN 500 MG TAB or CAP PO ONE (03:11)
[2025-02-14] MEDS: ASPirin 81 mg TAB PO ONE (03:11)
[2025-02-14 03:14] LABS: Basophils # (auto) 0.1 10 ^3/uL (0-0.2); Basophils % (auto) 1.1 % (0.0-2.0); Eosinophils # (auto) 0.3 10 ^3/uL (0-0.8); Hematocrit 39.7 % (36.0-46.0); Hemoglobin 13.5 g/dL (12.2-16.2); Lymphocytes # (auto) 2.2 10 ^3/uL (0.4-5.4); Lymphocytes % (auto) 31.8 % (10.0-50.0); Mean Corpuscular Hemoglobin 29.8 pg (28.0-32.0); Mean Corpuscular Hgb Conc. 34.1 g/dL (32.0-36.0); Mean Corpuscular Volume 87.5 fL (80.0-100.0); Monocytes # (auto) 0.5 10 ^3/uL (0-1.3); Monocytes % (auto) 7.4 % (0.0-12.0); Neutrophils # (auto) 3.9 10 ^3/uL (1.6-8.6); Neutrophils % (auto) 55.7 % (37.0-80.0); Nucleated Red Blood Cells % 0.1 %; Platelet Count (auto) 280 10^3/uL (140-450); Red Blood Cells 4.54 10^6/uL (4.0-5.20)
--- NOTE | 2025-02-14 03:16 | DVH ---
CHEST RADIOGRAPH Indication: CHEST PAIN Technique: Single frontal view of the chest was obtained COMPARISON: XY CHEST PORTABLE on DOS: 08/19/24, CHEST PORTABLE on DOS: 12/26/21, CHEST PORTABLE on DOS: 10/04/20, CHEST PORTABLE on DOS: 10/01/20, CHEST XRAY 1 VIEW on DOS: 09/30/20 FINDINGS: Lines and Tubes: None Lungs: Clear Pleura: No effusion. No pneumothorax. Cardiomediastinal contours: Unremarkable Bones: Unremarkable IMPRESSION: 1. No acute disease.
--- NOTE | 2025-02-14 03:25 | ED.PDOC ---
History of Present Illness HPI Comments 64-year-old morbidly obese female, with a past history of asthma and acute hypoxic respiratory failure secondary to COVID-19 induced pneumonia, presents with for complaint of nonradiating, sternal chest pain, congestion, and bilateral lower extremity swelling. She endorses on onset of symptoms, while driving home from vacation on 02/12/2025, after taking a 3.5 flight from [place]. Pain is a 10/10 in severity that it is worse with exertion and showed no signs of relief or improvement with [id number] Tylenol medication use. She denies any recent sick contacts or injuries alongside with any strenuous activities, aside from over-exerting herself from walking excessively while on aforementioned vacation. Denies any shortness of breath, palpitations, nausea associated symptoms or modifying factors. Chief Complaint: Chest Pain Time Seen by MD: 03:00 Primary Care Provider: DR QUIÑONES Reviewed Notes: Nurses Notes, Medications, Allergies Allergies: Coded Allergies: NO KNOWN ALLERGIES (Unverified , 03/13/14) Home Meds Active Scripts Methylprednisolone (Medrol Dosepak) 4 Mg Guerrero, 4 MG PO UD, #21 TAB UAD Prov:ESTEFANÍA SOLIS MD 08/22/24 Cyclobenzaprine Hcl (Cyclobenzaprine Hcl) 5 Mg Tab, 1 TAB PO QHSP PRN for 30 Days, #30 TAB 0 Refills Prov:MARICRUZ RAMIREZ NP 06/07/24 Meloxicam (Meloxicam) 7.5 Mg Tab, 1 TAB PO DAILY for 30 Days, #30 TAB 0 Refills Prov:MARICRUZ RAMIREZ NP 06/07/24 Montelukast Sodium (Singulair) 10 Mg Tab, 10 MG PO DAILY, #30 TAB Prov:KENYATTA PALACIOS MD 12/28/21 Azithromycin (Azithromycin) 500 Mg Tab, 1 TAB PO DAILY, #5 TAB Prov:KENYATTA PALACIOS MD 12/28/21 Famotidine (PEPCID TABLET) 20 Mg Tb, 1 TAB PO BID, #30 TAB Prov:KENYATTA PALACIOS MD 12/28/21 Ipratropium-Albuterol (Ipratropium [place]/Albut) 1 Jessica Jessica, 1 JESSICA IN TIDBM, #60 ML Prov:KENYATTA PALACIOS MD 12/28/21 Albuterol Sulfate (Ventolin) 2.5 Mg/0.5 Ml Nb, 2.5 MG NEB Q6HR PRN for 30 Days, #20 INH Prov:KENYATTA PALACIOS MD 10/03/20 Reported Medications Famotidine (PEPCID TABLET) 20 Mg Tb, 1 TAB PO BIDP, #60 TAB 3 Refills 12/27/21 Information Source: Patient Mode of Arrival: Ambulatory Severity: Moderate Timing: Days Duration: Since onset Prehospital treatment: None Review of Systems: REVIEW OF SYSTEMS: No fever, no chills, or fatigue HEENT: Congestion. No sore throat, no earache, no neck pain. Cardiac: chest pain. No palpitations. Lungs: No shortness of breath, no cough. GI: No nausea, no vomiting, no diarrhea, no constipation, no abdominal pain : No dysuria, frequency, or urgency. No hematuria. Musculoskeletal: No joint pain , no joint swelling, positive bilateral lower extremity edema Skin: No rash, no itching. Neuro: No headache, no dizziness, no weakness Vital Signs Vital Signs Date Time Temp Pulse Resp B/P (MAP) Pulse Ox O2 Delivery O2 Flow Rate FiO2 02/14/25 03:28 75 02/14/25 03:11 16 95 Room Air* 0 21 02/14/25 03:10 98.4 144/65 (91) 98.4 Physical Exam General: Awake, alert and oriented. No acute distress. Skin: Skin in warm, dry and intact. Appropriate color for ethnicity. HEENT: The head is normocephalic and atraumatic. Conjunctivae are clear without exudates or hemorrhage. Sclera is non-icteric. EOM are intact. No signs of nystagmus. Eyelids are normal in appearance without swelling or lesions. Oral mucosa is pink and moist Neck: The neck is supple with normal range of motion. No JVD. No palpable cords. Cardiac: Heart rate and rhythm are normal. No murmurs, gallops, or rubs are auscultated. Respiratory: No signs of respiratory distress. Lung sounds are clear in all lobes bilaterally without rales, rhonchi, or wheezes. Abdominal: Abdomen is soft, non-tender without distention. Bowel sounds are present and normoactive in all four quadrants. Extremities: 1+ bilateral pitting edema. Right posterior calf tenderness. Otherwise, remaining upper and lower extremities are atraumatic in appearance without deformity. Neurological: The patient is awake, alert and oriented to person, place, and time with normal speech. Speech is clear. There is no facial asymmetry. Psychiatric: Appropriate mood and affect. Good judgement and insight. Musculoskeletal: Right Chest wall tenderness reproducible with palpation. Past Medical History PAST MEDICAL HISTORY: Asthma Past Medical History (Other): Acute hypoxic respiratory failure secondary to acute viral pneumonia Surgical History: BTL, Cholecystectomy, TURKEY PICKER History: No Pertinent TURKEY PICKER History Family History Family History: Reviewed,noncontributory to illness Social History Smoker: Non-Smoker Alcohol: Denies ETOH Use Drugs: Denies Drug Use Lives In: Home Was a procedure done? Was a procedure done?: No EKG EKG : Pulse Rate (adult): 91 [place]: Normal Cardiac Rhythm: NSR Block: None Hypertrophy: None ST: Normal Comments No STEMI Differential Dx Considerations may include: Differential diagnoses considered include acute ischemic coronary syndrome, aortic dissection, cardiac tamponade, mediastinitis, pulmonary embolus, pneumothorax, tension pneumothorax, esophageal rupture, coronary artery vasospasm, myocarditis, pericarditis, pneumonia, pulmonary edema, esophageal tear, pancreatitis, aortic stenosis, dilated cardiomyopathy, hypertrophic cardiomyopathy, mitral valve prolapse, malignancy, pleuritis, pneumomediastinum, primary pulmonary hypertension, cholecystitis, esophageal spasm, esophagus, gastritis, GERD, peptic ulcer disease, costochondritis, fibromyalgia, rib fracture, herpes zoster, radicular syndromes, thoracic outlet syndrome, somatization. X-Ray, Labs, Meds, VS Vital Signs Date Time Temp Pulse Resp B/P (MAP) Pulse Ox O2 Delivery O2 Flow Rate FiO2 02/14/25 03:28 75 02/14/25 03:25 91 02/14/25 03:11 76 16 95 Room Air* 0 21 02/14/25 03:10 98.4 76 16 144/65 (91) 95 98.4 02/14/25 02:36 85 02/14/25 02:22 91 02/14/25 02:21 97.9 85 16 135/72 (93) 95 97.9 Lab Test 02/14/25 03:25 02/14/25 02:23 Range/Units Troponin I High Sensitivity < 3 L 3 L </=34 ng/L White Blood Count 7.0 4.4-10.8 10^3/uL Red Blood Count 4.54 4.0-5.20 10^6/uL Hemoglobin 13.5 12.2-16.2 g/dL Hematocrit 39.7 36.0-46.0 % Mean Corpuscular Volume 87.5 80.0-100.0 fL Mean Corpuscular Hemoglobin 29.8 28.0-32.0 pg Mean Corpuscular Hemoglobin Concent 34.1 32.0-36.0 g/dL Red Cell Distribution Width 14.0 11.8-14.3 % Platelet Count 280 140-450 10^3/uL Mean Platelet Volume 7.5 6.9-10.8 fL Neutrophils (%) (Auto) 55.7 37.0-80.0 % Lymphocytes (%) (Auto) 31.8 10.0-50.0 % Monocytes (%) (Auto) 7.4 0.0-12.0 % Eosinophils (%) (Auto) 4.0 0.0-7.0 % Basophils (%) (Auto) 1.1 0.0-2.0 % Neutrophils # (Auto) 3.9 1.6-8.6 10 ^3/uL Lymphocytes # (Auto) 2.2 0.4-5.4 10 ^3/uL Monocytes # (Auto) 0.5 0-1.3 10 ^3/uL Eosinophils # (Auto) 0.3 0-0.8 10 ^3/uL Basophils # (Auto) 0.1 0-0.2 10 ^3/uL Nucleated Red Blood Cells 0.1 % D-Dimer, Quantitative 0.28 0.0-0.49 mg/L FEU Sodium Level 142 136-145 mmol/L Potassium Level 3.9 3.5-5.1 mmol/L Chloride Level 107 98-107 mmol/L Carbon Dioxide Level 28 20-31 mmol/L Anion Gap 7 5-15 Blood Urea Nitrogen 8 L 9-23 mg/dL Creatinine 0.66 0.550-1.02 mg/dL Glomerular Filtration Rate Calc 99 >90 mL/min BUN/Creatinine Ratio 12.1 10.0-20.0 Serum Glucose 110 H 74-106 mg/dL Calcium Level 9.6 8.7-10.4 mg/dL Total Bilirubin 0.4 0.2-1.0 mg/dL Aspartate Amino Transferase (AST) 21 13-40 U/L Alanine Aminotransferase (ALT) 28 7-40 U/L Alkaline Phosphatase 68 46-116 U/L Total Protein 6.7 5.7-8.2 g/dL Albumin 4.3 3.2-4.8 g/dL Current Medications Medications (Trade) Dose Ordered Sig/Gerry Route Start Time Stop Time Status Last Admin Aspirin 324 mg ONCE ONCE PO 02/14/25 03:15 02/14/25 03:16 DC 02/14/25 03:11 Acetaminophen (Tylenol Tablet Or Capsule) 1,000 mg ONCE ONCE PO 02/14/25 03:15 02/14/25 03:16 DC 02/14/25 03:11 Ketorolac Tromethamine (Toradol Injection) 30 mg ONCE ONCE IM 02/14/25 04:00 02/14/25 04:01 DC 02/14/25 03:55 [place] [id number] Ph: [phone] DIAGNOSTIC IMAGING Diagnostic Imaging Report : [id number] Signed PATIENT: SALUD RICHMOND ACCT: [id number] UNIT: [id number] : 1960 LOC: ER ROOM / BED: / AGE / SEX: 64 / F ADM STATUS: REG ER SERVICE 9 ORDERING PHYSICIAN: ER PROCEDURE(s): CXRP - CHEST PORTABLE REASON: CHEST PAIN ORDER NUMBER(s): [id number], ACCESSION NUMBER(s): [id number] CHEST RADIOGRAPH Indication: CHEST PAIN Technique: Single frontal view of the chest was obtained COMPARISON: XY CHEST PORTABLE on DOS: 08/19/24, CHEST PORTABLE on DOS: 12/26/21, CHEST PORTABLE on DOS: 10/04/20, CHEST PORTABLE on DOS: 10/01/20, CHEST XRAY 1 VIEW on DOS: 09/30/20 FINDINGS: Lines and Tubes: None Lungs: Clear Pleura: No effusion. No pneumothorax. Cardiomediastinal contours: Unremarkable Bones: Unremarkable IMPRESSION: 1. No acute disease. ATED BY: BLAZE TORRE MD DICTATED DATE/TIME: 02/14/25313 SIGNED BY: BLAZE TORRE MD SIGNED DATE/TIME: 02/14/25313 CC: Images Reviewed?: Images reviewed and evaluated by me (Independent interpretation of chest x-ray: No acute disease) Time of 1ST Reevaluation: 03:30 Reevaluation 1ST: Unchanged Patient Education/Counseling: Need For Follow Up Family Education/Counseling: Need For Follow Up Departure 1 Departure Time of Disposition: 04:15 Impression: Primary Impression: Chest pain Disposition: 01 HOME / SELF CARE / HOMELESS Condition: Stable Additional Instructions: ED DISCHARGE INSTRUCTIONS Instructions: Please read all instructions provided in this packet carefully. Although you have been discharged from the Emergency Department, this does not mean that you have a "clean bill of health". No definitive diagnosis for your symptoms has been made today. It is possible that you are in the process of developing a serious illness. This is why you must return to the ED without fail if any new or worsening symptoms (especially if your symptoms include chest pain, trouble breathing, abdominal pain, fever, headache, confusion, trouble seeing, or trouble walking) It is also very important that you see a primary care doctor within the next 3-5 days to follow up. If you are unable to get an appointment, return to the ED for re-evaluation. You had elevated blood pressure reading today. Untreated high blood pressure can have serious consequences. However, you need a follow-up appointment to recheck your blood pressure to determine whether or not you need treatment. Make an appointment with your primary care provider for this within the next week. CHEST PAIN EDUCATION There are many things that can cause chest pain. Some are not serious and will get better on their own in a few days. But some kinds of chest pain need more testing and treatment. Your doctor may have recommended a follow-up visit in the next few days. If you are not getting better, you may need more tests or treatment. Even though your doctor has released you, you still need to watch for any problems. The doctor carefully checked you, but sometimes problems can develop later. If you have new symptoms or if your symptoms do not get better, get medical care right away. If you have worse or different chest pain or pressure that lasts more than 5 minutes or you passed out (lost consciousness), call 911 or seek other emergency help right away. A medical visit is only one step in your treatment. Even if you feel better, you still need to do what your doctor recommends, such as going to all suggested follow-up appointments and taking medicines exactly as directed. This will help you recover and help prevent future problems. How can you care for yourself at home? Rest until you feel better. Take your medicine exactly as prescribed. Call your doctor if you think you are having a problem with your medicine. Do not drive after taking a prescription pain medicine. When should you call for help? Call 911 if: You passed out (lost consciousness). You have severe difficulty breathing. You have symptoms of a heart attack. These may include: Chest pain or pressure, or a strange feeling in your chest. Sweating. Shortness of breath. Nausea or vomiting. Pain, pressure, or a strange feeling in your back, neck, jaw, or upper belly or in one or both shoulders or arms. Lightheadedness or sudden weakness. A fast or irregular heartbeat. After you call 911, the wet pan operator may tell you to chew 1 adult-strength or 2 to 4 low-dose aspirin. Wait for an ambulance. Do not try to drive yourself. Call your doctor now or seek immediate medical care if: You have any trouble breathing. You have new or different chest pain. You are dizzy or lightheaded, or you feel like you may faint. Watch closely for changes in your health, and be sure to contact your doctor if you do not get better as expected. Current as of: May 12, 2024 Author: [employer] Staff? Comments 64-year-old female with a right-sided chest pain. EKG negative for signs of ischemia. High sensitivity troponin negative x 2. D-dimer negative. CXR shows no acute process. Presentation not suggestive of acute coronary syndrome, pulmonary embolism or aortic dissection. Patient improved at time of discharge. No hypoxia, respiratory distress or dyspnea at discharge. Patient able to ambulate without difficulty. Patient well-appearing, nontoxic. Patient is felt stable for discharge home. Advised prompt follow-up with PCP, return to the ED with any new, worsening or concerning symptoms. Extensive evaluation was performed in attempt to identify or rule out: (See differential diagnosis section) The following tests were ordered, and results were reviewed by me and discussed with patient: (See diagnostic results section) The following test were independently interpreted by me: EKG, chest x-ray I reviewed and agreed with the following test results read by other providers: Chest x-ray I reviewed the following notes from the pt's past medical encounters: 2023 and June 07, 2024 encounters for pneumonia and lumbar radiculopathy, respectively. Additional information was gathered from interviewing the following independent historians: Discussion of management or test interpretation with external physician/other qualified health career development consultant: N/A Decision regarding hospitalization or escalation of hospital level of care: Risks and benefits of admission for further treatment of patient's condition was considered however due to patient's stable condition patient will be discharged to follow up closely or return to care for worsening of condition or inability to follow up. Critical Care Note Critical Care Time?: No Stability Stability form required: No Heart Score Heart Score: Heart Score Response (Comments) Value History Slightly Suspicious 0 EKG Normal 0 Age 45-64 1 Risk Factors 1 or 2 risk factors 1 Troponin Normal limit 0 Total 2 I personally scribed for JANICE BROWN MD ([email or web address]) on 02/14/25 at 03:25. Electronically submitted by Jamie Benoit ([email or web address]). I personally scribed for JANICE RBOWN MD ([email or web address]) on 02/14/25 at 03:26. Electronically submitted by Jamie Benoit ([email or web address]). I personally scribed for JANICE BROWN MD ([email or web address]) on 02/14/25 at 03:55. Electronically submitted by Jamie Benoit ([email or web address]). JANICE BROWN MD February 14, 2025 03:25
[2025-02-14 03:28] VITALS: PULSE 75
[2025-02-14] MEDS: KETOROLAC TROMETH 30 MG/ML 1ML VIAL IM ONE (03:55)
--- NOTE | 2025-02-14 11:00 | ECG ---
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
--- NOTE | 2025-02-14 11:00 | ECG ---
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
== END 2025-02-14 04:25 | disposition home or self-care (01) ==
LOC: ER 02:16
DX: R07.89 Other chest pain (principal); J45.909 Unspecified asthma, uncomplicated; Z98.51 Tubal ligation status; Z90.49 Acquired absence of other specified parts of digestive tract; Z79.899 Other long term (current) drug therapy; Z79.1 Long term (current) use of non-steroidal anti-inflammatories (NSAID)
CPT/HCPCS: 36415; 71045; 80053; 84484; 85025; 85379; 93005; 96372; 99285; J1885